=== PATIENT | male | born 1950 | race Caucasian/White ===

== ENCOUNTER → 2017-08-16 10:42 | Outpatient (CLI) | payer MEDICARE, SELFPAY ==
[2017-08-16 12:44] LABS: AST(SGOT) 21 U/L (15-37); Alanine Aminotransfer ALT/SGPT 34 U/L (16-61); Anion Gap 6 (5-15); BUN 17 mg/dL (7-18); BUN/Creat Ratio 20.7 RATIO (10-20); Calcium,Total 9.1 mg/dL (8.5-10.1); Chloride 103 mmol/L (98-107); Cholesterol 143 mg/dL (200); Creatinine, Serum 0.82 mg/dL (0.70-1.30); EST Glomerular Filtration Rate 99 mL/min (>60); Est Glom Filt Rate - Afr Amer 120 mL/min (>60); Glucose 111 mg/dL (74-106); High Density Lipoprotein 53 mg/dL; Potassium 4.4 mmol/L (3.5-5.1); Sodium Level 138 mmol/L (136-145); Triglycerides 153 mg/dL; Very Low Density Lipoprotein 31 mg/dL (5-40)
== END ==
PROVIDERS: Family Provider Family Medicine; PCP Family Medicine; Visit Provider Family Medicine
DX: Z00.00 Encounter for general adult medical examination without abnormal findings (principal); I10 Essential (primary) hypertension; E78.5 Hyperlipidemia, unspecified
CPT/HCPCS: 36415; 80048; 80061; 84450; 84460

== ENCOUNTER → 2018-02-14 09:28 | Outpatient (CLI) | payer MEDICARE, SELFPAY ==
[2018-02-14 12:34] LABS: Anion Gap 10 (5-15); BUN 22 mg/dL (7-18); BUN/Creat Ratio 27.5 RATIO (10-20); Calcium,Total 9.2 mg/dL (8.5-10.1); Chloride 103 mmol/L (98-107); EST Glomerular Filtration Rate 102 mL/min (>60); Est Glom Filt Rate - Afr Amer 123 mL/min (>60); Glucose 93 mg/dL (74-106); Sodium Level 142 mmol/L (136-145)
== END ==
PROVIDERS: Family Provider Family Medicine; PCP Family Medicine; Visit Provider Family Medicine
DX: I10 Essential (primary) hypertension (principal)
CPT/HCPCS: 36415; 80048

== ENCOUNTER 2018-05-29 14:19 | Observation (INO) | payer MEDICARE, SELFPAY ==
[2018-05-29] VITALS (8 sets, daily range): BP systolic 124–166; BP diastolic 83–94; PULSE 83–98; RESP 14–18; TEMP 36.1–37.3; O2SAT 93–96; BMI 35.2
--- NOTE | 2018-05-29 14:34 | RAD_ITS ---
STUDY: X-RAY - LEFT HAND REASON FOR EXAM: Male, 67 years old. Injury to the index finger. Soft tissue swelling. TECHNIQUE: 3 view(s) of the hand. COMPARISON: None. FINDINGS: Normal radiocarpal articulation. Normal distal radioulnar joint. Normal visualized carpal bones. Normal carpal articulations Normal carpometacarpal articulation of the thumb. Normal second through fifth carpometacarpal joints. Normal metacarpi. Normal metacarpophalangeal joint of the thumb. Normal interphalangeal joint of the thumb. Normal proximal and distal phalanges of the thumb. Normal metacarpophalangeal joints of the second through fifth fingers. There is diffuse articular joint space narrowing of the proximal and distal interphalangeal joints of the second through fifth fingers, but without erosive changes or periarticular soft tissue swelling. Focal linear calcification is seen along the radial aspect of the proximal interphalangeal joint of the third digit. This most likely is degenerative in nature. Normal phalanges of the second through fifth fingers. Diffuse soft tissue swelling of the index finger. Tiny metallic density is seen in the soft tissues along the palmar aspect underlying the base of the proximal phalanx of the fifth digit. RAD/Hand Min 3 Views IMPRESSION: Soft tissue swelling of the index finger. Degenerative changes of the interphalangeal joints. Questionable tiny radiopaque foreign body along the volar aspect of the base of the proximal phalanx of the fifth digit. Electronically Signed: Abhay Martinez MD at 15:18 EST Tel [phone], Service support ,
--- NOTE | 2018-05-29 14:37 | ED.VISSUMM ---
- ER Visit Summary Date of Service: 05/29/18 Chief Complaint: Left index finger infection History of Present Illness: The patient is a 67 M who presents for evaluation of the left index finger infection. 10 days ago patient had a crush injury to the finger while at work. He was seen at urgent care, And the injured area was sutured. Tetanus was updated at that time. Patient return to urgent care today for suture removal. Per urgent care, the patient did not follow the wound care instructions or use the splint that was placed. The sutures were removed and purulent drainage was noted from the wound. Patient denies any fever or constitutional symptoms. He denies any red streaking up his arm. He is right-handed. He has mild pain and is unable to bend the finger. He denies history of diabetes or smoking. Physical Examination: Vital signs: afebrile, hemodynamically stable, no hypoxia on room air General: well nourished, well developed, in no distress Skin: warm, dry, no rash, no pallor HEENT: normocephalic and atraumatic; PERRL, EOMI, moist mucous membranes Cardiovascular: regular rate and rhythm Respiratory: No increased work of breathing MSK: Moves all extremities, examination of the left upper extremity shows a 2+ radial pulse. No lymphangitis. No tender lymphadenopathy in the axilla. Left finger has significant fusiform swelling and erythema, with erythematous induration radiating to the distal palmar surface over the second metatarsal. Sensation is intact distally. Large ulcerated and purulent wound on the ulnar surface of the proximal finger. Neuro: Awake and alert, oriented ?4. No facial droop, sensation and motor function intact and symmetric Test Results: Abnormal Lab Results 05/29/18 05/29/18 05/29/18 14:50 14:50 14:50 WBC 10.8 RBC 4.72 Hgb 14.7 Hct 44.3 MCV 93.9 MCH 31.1 MCHC 33.2 RDW 13.4 RDW Differential 46.3 H Plt Count 410 MPV 9.3 Immature Gran % (Auto) 0.200 Neut % (Auto) 59.4 Lymph % (Auto) 28.2 [place] % (Auto) 8.5 Eos % (Auto) 3.4 Baso % (Auto) 0.3 Absolute Neuts (auto) 6.4 Absolute Lymphs (auto) 3.03 Total Counted Not Reportable ESR 15 PT 13.4 INR 1.0 APTT 32.1 Sodium 137 Potassium 3.6 Chloride 99 Carbon Dioxide 27.0 Anion Gap 11 BUN 19 H Creatinine 0.82 Estim Creat Clear Calc 93.32 Est GFR (MDRD) Af Amer 119 Est GFR (MDRD) Non-Af 99 BUN/Creatinine Ratio 23.1 H Glucose 91 Lactic Acid Calcium 9.4 Total Bilirubin 0.60 AST 28 ALT 42 Alkaline Phosphatase 62 C-React Prot Ext Range 21.90 H Total Protein 8.8 H Albumin 3.8 Globulin 5.0 H Albumin/Globulin Ratio 0.8 L 05/29/18 14:50 WBC RBC Hgb Hct MCV MCH MCHC RDW RDW Differential Plt Count MPV Immature Gran % (Auto) Neut % (Auto) Lymph % (Auto) [place] % (Auto) Eos % (Auto) Baso % (Auto) Absolute Neuts (auto) Absolute Lymphs (auto) Total Counted ESR PT INR APTT Sodium Potassium Chloride Carbon Dioxide Anion Gap BUN Creatinine Estim Creat Clear Calc Est GFR (MDRD) Af Amer Est GFR (MDRD) Non-Af BUN/Creatinine Ratio Glucose Lactic Acid 1.2 Calcium Total Bilirubin AST ALT Alkaline Phosphatase C-React Prot Ext Range Total Protein Albumin Globulin Albumin/Globulin Ratio Clinical Impression(s) from Imaging Studies Hand X-Ray 05/29/18 14:34 IMPRESSION: Soft tissue swelling of the index finger. Degenerative changes of the interphalangeal joints. Questionable tiny radiopaque foreign body along the volar aspect of the base of the proximal phalanx of the fifth digit. Electronically Signed: Abhay Martinez MD at 15:18 EST Tel [phone], Service support , Medications Given Vancomycin HCl 1,750 mg/ (Sodium Chloride) 535 mls @ 250 mls/hr IV X1 ONE Stop: 05/29/18 17:38 Last Admin: 05/29/18 16:01 Dose: 250 mls/hr Discontinued Medications Ceftriaxone Sodium (Rocephin) 1 gm in 50 mls @ 100 mls/hr IV X1 ONE Stop: 05/29/18 15:41 Last Admin: 05/29/18 15:29 Dose: 100 mls/hr Emergency Department Course and Treatment: Patient presents with obvious significant infection of the left index finger, with concern for flexor tenosynovitis. Patient has fusiform swelling but is currently not experiencing much pain, including with passive extension. Blood cultures and wound culture were obtained. Labs were performed showing elevated CRP but no leukocytosis. Lactate normal. Patient was started on IV Vanco and Rocephin. X-ray of the finger did not show any deep space gas or osteomyelitis. Patient was discussed with Dr. Pereira, who is going to take the patient to the OR for a washout of the finger this afternoon. Patient will receive IV antibiotics, and this plan was discussed with the patient who was in agreement. He did not require pain medication at any point. Treatment Plan: [] Disposition: [] Impression: Left index finger infection, left index finger flexor tenosynovitis This note was generated with [employer] dictation software. It may contain incorrect words, spelling, and punctuation that were not noted in review of the chart prior to signing ED Disposition - Plan for ED Patient: Disposition: Acute Care Hospital [facility] Chief Complaint: Upper Extremity Injury
--- NOTE | 2018-05-29 14:41 | ED.DCSUM_ITS ---
- ER Visit Summary Date of Service: 05/29/18 Chief Complaint: Left index finger infection History of Present Illness: The patient is a 67 M who presents for evaluation of the left index finger infection. 10 days ago patient had a crush injury to the finger while at work. He was seen at urgent care, And the injured area was sutured. Tetanus was updated at that time. Patient return to urgent care today for suture removal. Per urgent care, the patient did not follow the wound care instructions or use the splint that was placed. The sutures were removed and purulent drainage was noted from the wound. Patient denies any fever or constitutional symptoms. He denies any red streaking up his arm. He is right- handed. He has mild pain and is unable to bend the finger. He denies history of diabetes or smoking. Physical Examination: Vital signs: afebrile, hemodynamically stable, no hypoxia on room air General: well nourished, well developed, in no distress Skin: warm, dry, no rash, no pallor HEENT: normocephalic and atraumatic; PERRL, EOMI, moist mucous membranes Cardiovascular: regular rate and rhythm Respiratory: No increased work of breathing MSK: Moves all extremities, examination of the left upper extremity shows a 2+ radial pulse. No lymphangitis. No tender lymphadenopathy in the axilla. Left finger has significant fusiform swelling and erythema, with erythematous induration radiating to the distal palmar surface over the second metatarsal. Sensation is intact distally. Large ulcerated and purulent wound on the ulnar surface of the proximal finger. Neuro: Awake and alert, oriented ?4. No facial droop, sensation and motor function intact and symmetric Test Results: Abnormal Lab Results 05/29/18 05/29/18 05/29/18 14:50 14:50 14:50 WBC 10.8 RBC 4.72 Hgb 14.7 Hct 44.3 MCV 93.9 MCH 31.1 MCHC 33.2 RDW 13.4 RDW Differential 46.3 H Plt Count 410 MPV 9.3 Immature Gran % (Auto) 0.200 Neut % (Auto) 59.4 Lymph % (Auto) 28.2 [place] % (Auto) 8.5 Eos % (Auto) 3.4 Baso % (Auto) 0.3 Absolute Neuts (auto) 6.4 Absolute Lymphs (auto) 3.03 Total Counted Not Reportable ESR 15 PT 13.4 INR 1.0 APTT 32.1 Sodium 137 Potassium 3.6 Chloride 99 Carbon Dioxide 27.0 Anion Gap 11 BUN 19 H Creatinine 0.82 Estim Creat Clear Calc 93.32 Est GFR (MDRD) Af Amer 119 Est GFR (MDRD) Non-Af 99 BUN/Creatinine Ratio 23.1 H Glucose 91 Lactic Acid Calcium 9.4 Total Bilirubin 0.60 AST 28 ALT 42 Alkaline Phosphatase 62 C-React Prot Ext Range 21.90 H Total Protein 8.8 H Albumin 3.8 Globulin 5.0 H Albumin/Globulin Ratio 0.8 L 05/29/18 14:50 WBC RBC Hgb Hct MCV MCH MCHC RDW RDW Differential Plt Count MPV Immature Gran % (Auto) Neut % (Auto) Lymph % (Auto) [place] % (Auto) Eos % (Auto) Baso % (Auto) Absolute Neuts (auto) Absolute Lymphs (auto) Total Counted ESR PT INR APTT Sodium Potassium Chloride Carbon Dioxide Anion Gap BUN Creatinine Estim Creat Clear Calc Est GFR (MDRD) Af Amer Est GFR (MDRD) Non-Af BUN/Creatinine Ratio Glucose Lactic Acid 1.2 Calcium Total Bilirubin AST ALT Alkaline Phosphatase C-React Prot Ext Range Total Protein Albumin Globulin Albumin/Globulin Ratio Clinical Impression(s) from Imaging Studies Hand X-Ray 05/29/18 14:34 IMPRESSION: Soft tissue swelling of the index finger. Degenerative changes of the interphalangeal joints. Questionable tiny radiopaque foreign body along the volar aspect of the base of the proximal phalanx of the fifth digit. Electronically Signed: Abhay Martinez MD at 15:18 EST Tel [phone], Service support , Medications Given Vancomycin HCl 1,750 mg/ (Sodium Chloride) 535 mls @ 250 mls/hr IV X1 ONE Stop: 05/29/18 17:38 Last Admin: 05/29/18 16:01 Dose: 250 mls/hr Discontinued Medications Ceftriaxone Sodium (Rocephin) 1 gm in 50 mls @ 100 mls/hr IV X1 ONE Stop: 05/29/18 15:41 Last Admin: 05/29/18 15:29 Dose: 100 mls/hr Emergency Department Course and Treatment: Patient presents with obvious significant infection of the left index finger, with concern for flexor tenosynovitis. Patient has fusiform swelling but is currently not experiencing much pain, including with passive extension. Blood cultures and wound culture were obtained. Labs were performed showing elevated CRP but no leukocytosis. Lactate normal. Patient was started on IV Vanco and Rocephin. X-ray of the finger did not show any deep space gas or osteomyelitis. Patient was discussed with Dr. Pereira, who is going to take the patient to the OR for a washout of the finger this afternoon. Patient will receive IV antibiotics, and this plan was discussed with the patient who was in agreement. He did not require pain medication at any point. Treatment Plan: [] Disposition: [] Impression: Left index finger infection, left index finger flexor tenosynovitis This note was generated with [employer] dictation software. It may contain incorrect words, spelling, and punctuation that were not noted in review of the chart prior to signing ED Disposition - Plan for ED Patient: Disposition: Acute Care Hospital [facility] Chief Complaint: Upper Extremity Injury
[2018-05-29 15:12] LABS: Erythrocyte Sedimentation Rate 15 mm/hr (0-20)
[2018-05-29 15:14] LABS: Absolute Lymphocyte Count 3.03 X10^3/ul (0.83-4.51); Absolute Neutrophil Count 6.4 X10^3/uL (2.0-7.7); Basophil# 0.03 X10^3/uL; Basophil% 0.3 % (0-1); Eosinophil# 0.37 X10^3/uL; Eosinophils% 3.4 % (0-5); Hematocrit 44.3 % (40-54); Hemoglobin 14.7 g/dl (13.0-16.5); Lymphocyte # 3.03 X10^3/ul (4.0); Lymphocyte % 28.2 % (19-41); Mean Corp Hgb Conc 33.2 g/gl (32-36); Mean Corpuscular Hgb 31.1 pg (27.0-32.0); Mean Corpuscular Volume 93.9 fL (80-94); Mean Platelet Vol. 9.3 fl (6.2-12.0); Monocyte# 0.91 X10^3/uL; Monocyte% 8.5 % (0-10); Neutrophil # 6.39 X10^3/uL (2.7-7.7); Neutrophil % 59.4 % (47-70); Partial Thromboplast Time 32.1 Seconds (24.1-36.2); Platelet Count 410 K/mm3 (150-450); Prothrombin Time (Protime)PT. 13.4 SECONDS (11.7-14.9); RBC Distribution Width CV 13.4 % (11.6-14.6); RBC Distribution Width SD 46.3 fl (35.1-43.9); Red Blood Count 4.72 M/mm3 (4.6-6.2); White Blood Count 10.8 K/mm3 (4.4-11.0)
[2018-05-29 15:15] LABS: POSITIVE COUNT NO; POSITIVE DIFFERENTIAL NO; POSITIVE MORPHOLOGY NO
[2018-05-29 15:19] LABS: ALB/GLOB Ratio 0.8 RATIO (0.9-2.4); AST(SGOT) 28 U/L (15-37); Alanine Aminotransfer ALT/SGPT 42 U/L (16-61); Albumin, Serum 3.8 g/dL (3.2-5.0); Alkaline Phosphatase 62 U/L (45-117); Anion Gap 11 (5-15); BUN 19 mg/dL (7-18); BUN/Creat Ratio 23.1 RATIO (10-20); Calcium,Total 9.4 mg/dL (8.5-10.1); Chloride 99 mmol/L (98-107); Creatinine, Serum 0.82 mg/dL (0.70-1.30); EST Glomerular Filtration Rate 99 mL/min (>60); Est Glom Filt Rate - Afr Amer 119 mL/min (>60); Estimated Creatinine Clearance 93.32 ml/min; Glucose 91 mg/dL (74-106); Potassium 3.6 mmol/L (3.5-5.1); Protein, Total 8.8 g/dL (6.4-8.2); Sodium Level 137 mmol/L (136-145)
[2018-05-29 15:28] LABS: Lactic Acid 1.2 mmol/L (0.4-2.0)
[2018-05-29] MEDS: Ceftriaxone 1 GM/50 ML BAG IV (15:29)
--- NOTE | 2018-05-29 15:31 | NURSING ---
OR VINCENT LT INDEX FINGER INFECTION
--- NOTE | 2018-05-29 15:38 | ED.RN ---
[facility]ANC SENT WITH SURGERY.
--- NOTE | 2018-05-29 16:58 | HP.PCM_ITS ---
Problem List (1) Flexor tenosynovitis of finger Status: Acute History of Present Illness Date of Admission: 05/29/18 Chief Complaint: left index finger swelling/pain The patient is a 67 year old M who had a crush injury to his left index finger was seen by urgent care given antibiotics put him in a splint and was told to do wound care at home. Patient was per report was noncompliant increased purulence swelling flex fingers seen in the ER x-ray does not show any fracture lucency however patient had increased swelling unable to move finger and pus draining from the large wound on his ulnar aspect of his proximal second finger. Or so was consulted. Patient denies fevers chills or other constitutional symptoms. Pain and swelling localized to the left finger with cellulitis and pain into the palm [] Past Medical History Allergies No Known Allergies Allergy (Verified 05/29/18 14:20) Home Medications: Ambulatory Orders Medication Instructions Recorded Hydrochlorothiazide [Hctz] 1 tab PO DAILY 05/29/18 Quinapril HCl 1 tab PO DAILY 05/29/18 Simvastatin [Zocor] 1 tab PO DAILY 05/29/18 Lives: Spouse/ Significant Other Smoking Status: Unknown if ever smoked Review of Systems Constitutional: Denies: Chills, Fever, Weight Change HEENT: Denies: Head Aches, Sinus Congestion, Sinus Drainage Cardiovascular: Denies: Chest Pain, Palpitations Respiratory: Denies: Cough, Shortness of breath at rest, Sputum production Gastrointestinal: Denies: Abdominal Pain, Nausea, Vomiting Genitourinary: Denies: Dysuria Musculoskeletal: Reports: Hand Pain. Denies: Joint Pain, Joint Tenderness Skin: Denies: Rash, Wounds Neurological: Denies: Numbness, Tingling, Focal weakness Psychiatric: Denies: Anxiety, Depression, Homicidal Ideations, Suicidal Ideations Hematologic/ Lymphatic: Denies: Easy Bruising, Easy Bleeding VTE Information - Inpt Only VTE Present on Admission: No VTE Mechan Device Prophylaxis: SCD's VTE Pharm Prophylaxis ordered?: No Patient Problems: Active and Suspected Problems Flexor tenosynovitis of finger (Acute) - Physical Exam General: Alert, Oriented x3, Cooperative HEENT: Atraumatic, PERRLA, EOMI, Normocephalic Neck: Supple, No JVD, Negative Carotid Bruits Lungs: Clear to auscultation, Normal air movement Cardiovascular: Regular rate, No murmurs Abdomen: Bowel Sounds Present, Soft, Non Tender Extremities: No edema, Capillary Refill Less than 3 Seconds Skin: Ulcer/ Wound, Skin Tear Musculoskeletal: No Tenderness to Palpation of Joints or Extremities, Tenderness - Left index finger redness into palm, pus draining from lac on the ulnar aspect of his proximal second digit, unable to extend, swelling of entire second finger, Neurological: Cranial nerves II-XII grossly intact Psych/Mental Status: Normal Affect, Appropriate Vital Signs Temp Pulse Resp BP Pulse Ox 98.4 F 85 14 134/90 H 93 05/29/18 15:30 05/29/18 15:30 05/29/18 15:30 05/29/18 15:30 05/29/18 15:30 Oxygen Delivery Method Room Air Weight: 260 lb Body Mass Index (BMI) 35.2 Laboratory Tests Past 24 Hrs 05/29/18 05/29/18 05/29/18 14:50 14:50 14:50 WBC 10.8 RBC 4.72 Hgb 14.7 Hct 44.3 MCV 93.9 MCH 31.1 MCHC 33.2 RDW 13.4 RDW Differential 46.3 H Plt Count 410 MPV 9.3 Immature Gran % (Auto) 0.200 Neut % (Auto) 59.4 Lymph % (Auto) 28.2 [place] % (Auto) 8.5 Eos % (Auto) 3.4 Baso % (Auto) 0.3 Absolute Neuts (auto) 6.4 Absolute Lymphs (auto) 3.03 Total Counted Not Reportable ESR 15 PT 13.4 INR 1.0 APTT 32.1 Sodium 137 Potassium 3.6 Chloride 99 Carbon Dioxide 27.0 Anion Gap 11 BUN 19 H Creatinine 0.82 Estim Creat Clear Calc 93.32 Est GFR (MDRD) Af Amer 119 Est GFR (MDRD) Non-Af 99 BUN/Creatinine Ratio 23.1 H Glucose 91 Lactic Acid Calcium 9.4 Total Bilirubin 0.60 AST 28 ALT 42 Alkaline Phosphatase 62 C-React Prot Ext Range 21.90 H Total Protein 8.8 H Albumin 3.8 Globulin 5.0 H Albumin/Globulin Ratio 0.8 L 05/29/18 14:50 WBC RBC Hgb Hct MCV MCH MCHC RDW RDW Differential Plt Count MPV Immature Gran % (Auto) Neut % (Auto) Lymph % (Auto) [place] % (Auto) Eos % (Auto) Baso % (Auto) Absolute Neuts (auto) Absolute Lymphs (auto) Total Counted ESR PT INR APTT Sodium Potassium Chloride Carbon Dioxide Anion Gap BUN Creatinine Estim Creat Clear Calc Est GFR (MDRD) Af Amer Est GFR (MDRD) Non-Af BUN/Creatinine Ratio Glucose Lactic Acid 1.2 Calcium Total Bilirubin AST ALT Alkaline Phosphatase C-React Prot Ext Range Total Protein Albumin Globulin Albumin/Globulin Ratio Assessment/Plan All Active Problems Flexor tenosynovitis of finger (Acute) Questionable flexor tenosynovitis Cellulitis Pus drainage abscess from left proximal finger Consent obtained from patient. Risks benefits not and alternative treatment options discussed. Risks and including but not limited to blood loss, blood clot, infection, neurovascular injury, failure procedure, loss of life and loss of limb. The biggest risk of the surgery is stiffness which we described is most likely can happen patient states that he is right-handed this is less of a concern for him is losing the finger we also discussed losing the finger is another option as well. Patient aware would like proceed with left index finger irrigation debridement most likely extending the incision into the palm he will have a drain overnight admitted for IV antibiotics ID will be consulted as well as social media campaign manager for home health to be done over the weekend Call with increased and patient told to call with increased pain numbness tingling or other issues arise Juan was running Rocephin already given Continue IV antibiotics for 24 hours and awaiting culture but most likely will send him home on pain culture sensitive p.o. antibiotics and will change the antibiotics depending upon the culture results as patient would really like to be home for Thanksgiving This note was generated with [employer] dictation software. It may contain incorrect words, spelling, and punctuation that were not noted in checking the note before signing.
--- NOTE | 2018-05-29 17:19 | OP.PCM_ITS ---
Problem List (1) Flexor tenosynovitis of finger Status: Acute Report of Operation Date of Procedure: 05/29/18 Pre-Operative Diagnosis: left index finger tenosynovitis Post-Operative Diagnosis: same Surgery/Procedure Performed:: left index finger irrigation/debridement ; incision/drainage finger into palm Description of Surgical Findings:: pus superficial Type of Anesthesia:: General Anesthesiologist: Keith Lehman Specimen's removed: cultures from wound Estimated Blood Loss (mL): minimal Fluids Replaced: see anesthesia chart Description of Procedure: Preoperative note Questionable flexor tenosynovitis Cellulitis Pus drainage abscess from left proximal finger Consent obtained from patient. Risks benefits not and alternative treatment options discussed. Risks and including but not limited to blood loss, blood clot, infection, neurovascular injury, failure procedure, loss of life and loss of limb. The biggest risk of the surgery is stiffness which we described is most likely can happen patient states that he is right-handed this is less of a concern for him is losing the finger we also discussed losing the finger is another option as well. Patient aware would like proceed with left index finger irrigation debridement most likely extending the incision into the palm he will have a drain overnight admitted for IV antibiotics ID will be consulted as well as director social for home health to be done over the weekend Call with increased and patient told to call with increased pain numbness tingling or other issues arise Juan was running Rocephin already given Continue IV antibiotics for 24 hours and awaiting culture but most likely will send him home on pain culture sensitive p.o. antibiotics and will change the antibiotics depending upon the culture results as patient would really like to be home for Thanksgiving This note was generated with [employer] dictation software. It may contain incorrect words, spelling, and punctuation that were not noted in checking the note before signing. Operative note Patient seen in preop holding area. Finger was quite erythematous stiff swollen there is an eschar lesion extended both distally into his middle phalanx as well as palmar palmarly. Patient had little to no range of motion without pain. This happened about a week ago. Finger was marked patient brought to the operating placed supine on the operating table. Signing, anesthesia, antibiotic s were held until cultures were taken. The arm was elevated segment in turn was raised her pressure to 50 torr. Timeout was performed. We then made our incision as it actually across the PIP joint distally we does extend to that along the ulnar border of his finger. We then used a 15 blade to debride out some of the skin that was necrotic he has some gross pus that was just soup superficial and did not track deep however we did extend the incision into the palm releases A1 jesus slight murky fluid from that as well. We irrigated this with copious nonsterile saline we let the extension of the finger we irrigated and ensuring that we got the entire flexor irrigating it with copious amounts of sterile saline and flexing and extending to ensure that there was no further pus deep. We then closed the skin over drain 4-0 nylon interrupted stitches sterile dressings and were applied. Patient taught procedure well no comp occasions transferred recovery room tourniquet was deflated please see chart for further details. Postoperative note Discussed in detail the risk for stiffness of the finger IV antibiotics Pull drain tomorrow possible discharge tomorrow was the next day as it is Thanksgiving patient would like to go home he said that was okay but if the cultures grow out back anything weird we have to call and change his antibiotics patient and family are okay with this next Follow-up in 1 week Keep dressing clean and dry [place] disclaimer - Admit VTE Documentation VTE Present on Admission: No VTE Mechan Device Prophylaxis: SCD's VTE Pharm Prophylaxis ordered?: No
[2018-05-29] MEDS: Mupirocin Ointment 22gm Tube 1 APPLIC (17:40)
--- NOTE | 2018-05-29 19:29 | PCM.PN.HOSP ---
Patient Problems: Active and Suspected Problems Flexor tenosynovitis of finger (Acute) Subjective: The patient notes mild to moderate pain currently to the L hand, notably the L index finger s/p OR w/ cellulitis and flexor tenosynovitis per Dr. Pereira. He had recent crush injury to his L index finger and was evaluated per UC, given abx therapy as well as placement in a splint with planned wound care at home with development of increased edema, purulent drainage from the wounds. ED evaluation w/ plain film without acute fracture. Given patient findings patient as noted taken to the ED and admitted per Orthopedic surgery. His is present and notes that he does have a high pain threshold. He denies any fever, chills, nausea, emesis, abdominal pain, chest pain or dyspnea. Past Medical Hx: HTN, HLD. Past Surgical Hx: Denies prior surgery history until recent I+D left proximal finger. Social History: Lives with his , denies tobacco use history, notes occasional EtOH usage and denies any elicit drug usage. Family History: Notes maternal family history of MS otherwise denies maternal and paternal family history of HTN, HD, DM, CA. Allergies: NKDA Home medications: Hydrochlorothiazide [Hctz] 1 tab PO DAILY 05/29/18 Quinapril HCl 1 tab PO DAILY 05/29/18 Simvastatin [Zocor] 1 tab PO DAILY 05/29/18 Objective: Physical Examination: General: awake, alert, oriented x 3 and cooperative, seated upright in bed in no apparent distress. Skin: normal color, turgor, no icterus, cyanosis, L hand and L index finger s/p OR w/ dressing in place, icing currently. HEENT: AT/NC, EOMI, PERRLA, MMM, no carotid bruits or JVD noted. Lungs: CTA bilaterally, moderate effort, mild decrease BL bases, no rales, ronchi or wheezing. Heart: Regular rate and rhythm; no gallop, rub audible. Abdomen: soft, obese, NTTP, ND, normal BS, no HSM. Extremities: no cyanosis, clubbing, s/p OR L hand, dressing in place. Neurological: patient awake, alert, oriented x 3; cognitive function intact; pupils equally reactive to light and accomodation; cranial nerves II-XII grossly normal, moving all 4 extremities except limited LUE as expected given recent OR, strength accordingly moderately globally decreased. Psychiatric: affect appears normal, no acute evidence of depressive or anxiety feelings. Vitals/I&O's: Vital Signs Temp Pulse Resp BP Pulse Ox 98.2 F 87 16 133/89 H 93 05/29/18 18:38 05/29/18 18:38 05/29/18 18:38 05/29/18 18:38 05/29/18 18:38 Oxygen Delivery Method Room Air Weight: 259 lb 14.8 oz Body Mass Index (BMI) 35.2 Intake and Output for Last 24 Hours 05/27/18 05/28/18 05/29/18 23:59 23:59 23:59 Intake Total 800 / 800 Balance 800 / 800 Laboratory Results 05/29/18 14:50: WBC 10.8, RBC 4.72, Hgb 14.7, Hct 44.3, MCV 93.9, MCH 31.1, MCHC 33.2, RDW 13.4, RDW Differential 46.3 H, Plt Count 410, MPV 9.3, Immature Gran % (Auto) 0.200, Neut % (Auto) 59.4, Lymph % (Auto) 28.2, [place] % (Auto) 8.5, Eos % (Auto) 3.4, Baso % (Auto) 0.3, Absolute Neuts (auto) 6.4, Absolute Lymphs (auto) 3.03, Total Counted Not Reportable, ESR 15 05/29/18 14:50: PT 13.4, INR 1.0, APTT 32.1 05/29/18 14:50: Sodium 137, Potassium 3.6, Chloride 99, Carbon Dioxide 27.0, Anion Gap 11, BUN 19 H, Creatinine 0.82, Estim Creat Clear Calc 93.32, Est GFR (MDRD) Af Amer 119, Est GFR (MDRD) Non-Af 99, BUN/Creatinine Ratio 23.1 H, Glucose 91, Calcium 9.4, Total Bilirubin 0.60, AST 28, ALT 42, Alkaline Phosphatase 62, C-React Prot Ext Range 21.90 H, Total Protein 8.8 H, Albumin 3.8, Globulin 5.0 H, Albumin/Globulin Ratio 0.8 L 05/29/18 14:50: Lactic Acid 1.2 Current Medications Hydrocodone Bitart/Acetaminophen ([place] 5mg-325mg) 1 - 2 tablet PO Q6H PRN PRN PRN Reason: Mild-moderate pain (scale 1-5) Cefazolin Sodium () 1 gm in 50 mls @ 100 mls/hr IV Q8 ERIC Stop: 05/30/18 06:29 Influenza Virus Vaccine Quadrival (Fluarix/Fluzone) 0.5 ml IM .ONCE ONE Stop: 05/30/18 10:01 Ondansetron HCl (Zofran) 4 mg IV Q8H PRN PRN PRN Reason: Nausea Medical Necessity - Tobacco Use Smoking Status: Never smoker Assessment/Plan All Active Problems Flexor tenosynovitis of finger (Acute) The patient is a 67 y/o M w/ PMHx: HTN, HLD who presents to the [facility] ED on 05/29/18 with history of crush injury recently to the L index finger w/ worsened edema, pain, redness and onset purulent drainage despite UC evaluation w/ abx therapies. (1) Acute Cellulitis L Index finger w/ flexor tenosynovitis secondary to recent Crush Injury, Failed outpatient Abx Therapy: OR 05/29/[address] Pereira, s/p I+D L index finger, admitted to [facility] per Orthopedic surgery, currently maintained on IV ancef, pending Wound Cx per OR, continue affected extremity elevation above heart when seated and in bed, monitor erythema outline with VS checks, PRN pain regimen per Orthopedic surgery. (2) Hypertension: Continue home HCTZ and ACEI regimen, PRN hydralazine. (3) Hyperlipidemia: Continue home statin regimen. (4) Obesity: Advance lifestyle and diet changes. (5) DVT Prophylaxis: SCDs, given recent OR defer chemoprophylaxis to Orthopedic surgery discretion. Code Visit Inpatient E&M: 97123 Subs Hosp L3
[2018-05-29] MEDS: HYDROcodone Bitartrate/Apap 5/325 Tablet PO (20:53)
[2018-05-29] MEDS: Cefazolin 1 GM/50 ML BAG IV (20:53)
[2018-05-29] MEDS: 0.9% NaCl Peripheral Flush Adult/Peds IV (20:53)
[2018-05-30 03:59] VITALS: BP 133/89; PULSE 83; RESP 16; TEMP 36.9; O2SAT 98
[2018-05-30] MEDS: HYDROcodone Bitartrate/Apap 5/325 Tablet PO (05:12)
[2018-05-30] MEDS: Cefazolin 1 GM/50 ML BAG IV (05:12)
[2018-05-30] MEDS: 0.9% NaCl Peripheral Flush Adult/Peds IV ×2 (05:13→13:37)
--- NOTE | 2018-05-30 08:46 | NURSING ---
wound photo: left index finger
[2018-05-30 10:00] VITALS: BP 127/77; PULSE 83; RESP 14; TEMP 36.4; O2SAT 94
--- NOTE | 2018-05-30 10:18 | PCM.PN.HOSP ---
Patient Problems: Active and Suspected Problems Flexor tenosynovitis of finger (Acute) Subjective: Patient seen and examined. He has no complaints and feels well. He denies any fever chills, cough or chest pain, shortness of breath, abdominal pain, any diarrhea vomiting. Review of systems otherwise negative. Labs and vitals reviewed. Vitals/I&O's: Vital Signs Temp Pulse Resp BP Pulse Ox 98.5 F 83 16 133/89 H 98 05/30/18 03:59 05/30/18 03:59 05/30/18 03:59 05/30/18 03:59 05/30/18 03:59 Oxygen Delivery Method Room Air Weight: 259 lb 14.8 oz Body Mass Index (BMI) 35.2 Intake and Output for Last 24 Hours 05/28/18 05/29/18 05/30/18 23:59 23:59 23:59 Intake Total 1190 / 1190 200 / 200 Balance 1190 / 1190 200 / 200 General: Alert, Oriented x3, Cooperative, No apparent distress HEENT: Atraumatic, PERRLA, EOMI, Normocephalic Oral: Moist Mucosa Neck: Supple, No JVD, Negative Carotid Bruits Lungs: Clear to auscultation, Normal air movement Cardiovascular: Regular rate, Regular Rhythm, Normal S1, Normal S2, No murmurs Abdomen: Bowel Sounds Present, Soft, Non Tender, Non-Distended, No Hepato-splenomegaly Extremities: No clubbing, No cyanosis, No edema, Capillary Refill Less than 3 Seconds, - - Left hand wrapped in JOSE bandage Skin: No rashes, No breakdown Musculoskeletal: No Tenderness to Palpation of Joints or Extremities Lymphatic: No Cervical, Supraclavicular, or Inguinal Adenopathy Neurological: Cranial nerves II-XII grossly intact, Neuro grossly intact, Motor Exam 5/5 strength throughout Psych/Mental Status: Normal Affect, Appropriate, Alert and oriented to time, place, person, mood and affect Laboratory Results 05/29/18 14:50: WBC 10.8, RBC 4.72, Hgb 14.7, Hct 44.3, MCV 93.9, MCH 31.1, MCHC 33.2, RDW 13.4, RDW Differential 46.3 H, Plt Count 410, MPV 9.3, Immature Gran % (Auto) 0.200, Neut % (Auto) 59.4, Lymph % (Auto) 28.2, [place] % (Auto) 8.5, Eos % (Auto) 3.4, Baso % (Auto) 0.3, Absolute Neuts (auto) 6.4, Absolute Lymphs (auto) 3.03, Total Counted Not Reportable, ESR 15 05/29/18 14:50: PT 13.4, INR 1.0, APTT 32.1 05/29/18 14:50: Sodium 137, Potassium 3.6, Chloride 99, Carbon Dioxide 27.0, Anion Gap 11, BUN 19 H, Creatinine 0.82, Estim Creat Clear Calc 93.32, Est GFR (MDRD) Af Amer 119, Est GFR (MDRD) Non-Af 99, BUN/Creatinine Ratio 23.1 H, Glucose 91, Calcium 9.4, Total Bilirubin 0.60, AST 28, ALT 42, Alkaline Phosphatase 62, C-React Prot Ext Range 21.90 H, Total Protein 8.8 H, Albumin 3.8, Globulin 5.0 H, Albumin/Globulin Ratio 0.8 L 05/29/18 14:50: Lactic Acid 1.2 Current Medications Acetaminophen (Tylenol) 650 mg PO Q6H PRN PRN PRN Reason: Non-cardiac pain (mod-severe) Hydrocodone Bitart/Acetaminophen ([place] 5mg-325mg) 1 - 2 tablet PO Q6H PRN PRN PRN Reason: Mild-moderate pain (scale 1-5) Last Admin: 05/30/18 05:12 Dose: 2 tablet Hydralazine HCl (Apresoline Iv) 10 mg IV Q4H PRN PRN PRN Reason: SBP > 160 Ondansetron HCl (Zofran) 4 mg IV Q8H PRN PRN PRN Reason: Nausea Sodium Chloride () 5 - 30 ml IV UD PRN PRN Reason: SALINE FLUSH Last Admin: 05/30/18 05:13 Dose: 10 ml Medical Necessity - Tobacco Use Smoking Status: Never smoker Assessment/Plan All Active Problems Flexor tenosynovitis of finger (Acute) 1. Cellulitis of left index finger with flexor tenosynovitis failed outpatient Antibiotic therapy and had I&D on 05/29/2018. On IV Ancef. Wound culture pending. To keep left upper extremity elevated. Pain medication as per orthopedics-currently on [place] 2. Hypertension: controlled.; On HCTZ and quinapril, and prn hydralazine 3. Hyperlipidemia; on statin 4. Obesity: BMI is 35.1. counselled on diet and lifestyle changes. DVT prophylaxis: SCDs. Code Visit Inpatient E&M: 29685 Subs Hosp L2
--- NOTE | 2018-05-30 10:26 | PN_ITS ---
Patient Problems: Active and Suspected Problems Flexor tenosynovitis of finger (Acute) Subjective: Patient seen and examined. He has no complaints and feels well. He denies any fever chills, cough or chest pain, shortness of breath, abdominal pain, any diarrhea vomiting. Review of systems otherwise negative. Labs and vitals r eviewed. Vitals/I&O's: Vital Signs Temp Pulse Resp BP Pulse Ox 98.5 F 83 16 133/89 H 98 05/30/18 03:59 05/30/18 03:59 05/30/18 03:59 05/30/18 03:59 05/30/18 03:59 Oxygen Delivery Method Room Air Weight: 259 lb 14.8 oz Body Mass Index (BMI) 35.2 Intake and Output for Last 24 Hours 05/28/18 05/29/18 05/30/18 23:59 23:59 23:59 Intake Total 1190 / 1190 200 / 200 Balance 1190 / 1190 200 / 200 General: Alert, Oriented x3, Cooperative, No apparent distress HEENT: Atraumatic, PERRLA, EOMI, Normocephalic Oral: Moist Mucosa Neck: Supple, No JVD, Negative Carotid Bruits Lungs: Clear to auscultation, Normal air movement Cardiovascular: Regular rate, Regular Rhythm, Normal S1, Normal S2, No murmurs Abdomen: Bowel Sounds Present, Soft, Non Tender, Non-Distended, No Hepato-splenomegaly Extremities: No clubbing, No cyanosis, No edema, Capillary Refill Less than 3 Seconds, - - Left hand wrapped in JOSE bandage Skin: No rashes, No breakdown Musculoskeletal: No Tenderness to Palpation of Joints or Extremities Lymphatic: No Cervical, Supraclavicular, or Inguinal Adenopathy Neurological: Cranial nerves II-XII grossly intact, Neuro grossly intact, Motor Exam 5/5 strength throughout Psych/Mental Status: Normal Affect, Appropriate, Alert and oriented to time, place, person, mood and affect Laboratory Results 05/29/18 14:50: WBC 10.8, RBC 4.72, Hgb 14.7, Hct 44.3, MCV 93.9, MCH 31.1, MCHC 33.2, RDW 13.4, RDW Differential 46.3 H, Plt Count 410, MPV 9.3, Immature Gran % (Auto) 0.200, Neut % (Auto) 59.4, Lymph % (Auto) 28.2, [place] % (Auto) 8.5, Eos % (Auto) 3.4, Baso % (Auto) 0.3, Absolute Neuts (auto) 6.4, Absolute Lymphs (auto) 3.03, Total Counted Not Reportable, ESR 15 05/29/18 14:50: PT 13.4, INR 1.0, APTT 32.1 05/29/18 14:50: Sodium 137, Potassium 3.6, Chloride 99, Carbon Dioxide 27.0, Anion Gap 11, BUN 19 H, Creatinine 0.82, Estim Creat Clear Calc 93.32, Est GFR (MDRD) Af Amer 119, Est GFR (MDRD) Non-Af 99, BUN/Creatinine Ratio 23.1 H, Glucose 91, Calcium 9.4, Total Bilirubin 0.60, AST 28, ALT 42, Alkaline Phosphatase 62, C-React Prot Ext Range 21.90 H, Total Protein 8.8 H, Albumin 3.8, Globulin 5.0 H, Albumin/Globulin Ratio 0.8 L 05/29/18 14:50: Lactic Acid 1.2 Current Medications Acetaminophen (Tylenol) 650 mg PO Q6H PRN PRN PRN Reason: Non-cardiac pain (mod-severe) Hydrocodone Bitart/Acetaminophen ([place] 5mg-325mg) 1 - 2 tablet PO Q6H PRN PRN PRN Reason: Mild-moderate pain (scale 1-5) Last Admin: 05/30/18 05:12 Dose: 2 tablet Hydralazine HCl (Apresoline Iv) 10 mg IV Q4H PRN PRN PRN Reason: SBP > 160 Ondansetron HCl (Zofran) 4 mg IV Q8H PRN PRN PRN Reason: Nausea Sodium Chloride () 5 - 30 ml IV UD PRN PRN Reason: SALINE FLUSH Last Admin: 05/30/18 05:13 Dose: 10 ml Medical Necessity - Tobacco Use Smoking Status: Never smoker Assessment/Plan All Active Problems Flexor tenosynovitis of finger (Acute) 1. Cellulitis of left index finger with flexor tenosynovitis * failed outpatient * Antibiotic therapy and had I&D on 05/29/2018. * On IV Ancef. * Wound culture pending. * To keep left upper extremity elevated. * Pain medication as per orthopedics-currently on [place] * 2. Hypertension: controlled.; On HCTZ and quinapril, and prn hydralazine 3. Hyperlipidemia; on statin 4. Obesity: BMI is 35.1. counselled on diet and lifestyle changes. DVT prophylaxis: SCDs. Code Visit Inpatient E&M: 92104 Subs Hosp L2
--- NOTE | 2018-05-30 13:21 | DCINST_ITS ---
- Discharge Diagnoses Current Active Problems: Current Active and Chronic Problems Flexor tenosynovitis of finger (Acute) Reason(s) for Visit for Discharge Instructions: Incision and drainage of left index finger with irrigation secondary to flexor tenosynovitis You will use the following diet at home:: No restrictions, Regular Your food should be the consistency of: Regular Discharge Activity: May Not Drive, May Not Shower May shower in (days): 5 Lifting Restrictions: no lifting with the left hand until follow-up evaluation Keep extremity elevated above heart level: Operative Extremity Call your doctor if your incision/area has: Sudden Increased Bleeding, Increased Pain/ Swelling, Increased Redness, Foul Smelling Discharge, Swelling at the incision site Call your doctor if you observe: Fever of 101 or Higher, Coldness, Increased Pain, Numbness or Tingling, Change in Color, Shortness of breath, Dizziness, Chest pain, Calf discomfort, Uncontrolled pain Suture Line Care: Avoid Pulling/Pushing, Avoid Pinching/Bending Change Dressing in (Days):: 2 - sooner if needed Cleanse incision/area with: Do not get Incision Wet, Keep Dressing Clean & Dry Allergies/Adverse Reactions: Allergies No Known Allergies Allergy (Verified 05/29/18 14:20) Medications to take at Discharge Hydrochlorothiazide [Hctz] 1 tab PO DAILY 05/29/18 Quinapril HCl 20 mg PO DAILY 05/29/18 Simvastatin [Zocor] 1 tab PO DAILY 05/29/18 Linezolid 600 mg PO BID #28 tablet 05/30/18 The following prescriptions were given: Linezolid 600 mg PO BID #28 tablet Primary Care Physician: Xiomy Pickering MD [Primary Care Provider] - Test Results: Test results from this visit will be discussed in further detail at your follow- up appointment, if applicable. Please Follow Up With: Kay Pereira DO - will modify antibiotic regimen pending culture results When: in 4-5 days Proposed Discharge Date: 05/30/18
--- NOTE | 2018-05-30 13:35 | CON.PCM_ITS ---
Problem List (1) Flexor tenosynovitis of finger Status: Acute Reason for Consult: finger infection Consulted by: Dr. Pereira History of Present Illness: The patient is a 67 year old M with no prior h/o MRSA infection who presented with L 2nd finger swelling, pain, and purulent drainage. Pinched his finger 05/16, went to urgent care and got stitched up. After that point noticed progressive worsening. No redness streaking up hand/arm, finger only mildly sore with movement. No fever or chills. Came to ED, taken to OR 05/[address] Pereira for I&D. Got vanc/ceftriaxone, then cefazolin post-op. Interested in going home. Full ROS performed and neg except as noted above. - Medical History Allergies/Adverse Reactions: Allergies No Known Allergies Allergy (Verified 05/29/18 14:20) Home Medications: Ambulatory Orders Medication Instructions Recorded Hydrochlorothiazide [Hctz] 1 tab PO DAILY 05/29/18 Quinapril HCl 20 mg PO DAILY 05/29/18 Simvastatin [Zocor] 1 tab PO DAILY 05/29/18 Linezolid 600 mg PO BID #28 tablet 05/30/18 - Social History SMOKING STATUS:: Never smoker Vital Signs Temp Pulse Resp BP Pulse Ox 97.5 F L 83 14 127/77 H 94 05/30/18 10:00 05/30/18 10:00 05/30/18 10:00 05/30/18 10:00 05/30/18 10:00 Oxygen Delivery Method Room Air Weight: 117.9 kg Body Mass Index (BMI) 35.2 Microbiology Past 72 Hours 05/29/18 17:21 Gram Stain - Final Biopsy - Finger Wound Culture - Preliminary Staphylococcus aureus 05/29/18 17:21 Gram Stain - Final Biopsy - Finger Wound Culture - Preliminary Staphylococcus aureus 05/29/18 14:50 Gram Stain - Final Wound - Finger Wound Culture - Preliminary Staphylococcus aureus Laboratory Tests Past 24 Hrs 05/29/18 05/29/18 05/29/18 14:50 14:50 14:50 WBC 10.8 RBC 4.72 Hgb 14.7 Hct 44.3 MCV 93.9 MCH 31.1 MCHC 33.2 RDW 13.4 RDW Differential 46.3 H Plt Count 410 MPV 9.3 Immature Gran % (Auto) 0.200 Neut % (Auto) 59.4 Lymph % (Auto) 28.2 [place] % (Auto) 8.5 Eos % (Auto) 3.4 Baso % (Auto) 0.3 Absolute Neuts (auto) 6.4 Absolute Lymphs (auto) 3.03 Total Counted Not Reportable ESR 15 PT 13.4 INR 1.0 APTT 32.1 Sodium 137 Potassium 3.6 Chloride 99 Carbon Dioxide 27.0 Anion Gap 11 BUN 19 H Creatinine 0.82 Estim Creat Clear Calc 93.32 Est GFR (MDRD) Af Amer 119 Est GFR (MDRD) Non-Af 99 BUN/Creatinine Ratio 23.1 H Glucose 91 Lactic Acid Calcium 9.4 Total Bilirubin 0.60 AST 28 ALT 42 Alkaline Phosphatase 62 C-React Prot Ext Range 21.90 H Total Protein 8.8 H Albumin 3.8 Globulin 5.0 H Albumin/Globulin Ratio 0.8 L 05/29/18 14:50 WBC RBC Hgb Hct MCV MCH MCHC RDW RDW Differential Plt Count MPV Immature Gran % (Auto) Neut % (Auto) Lymph % (Auto) [place] % (Auto) Eos % (Auto) Baso % (Auto) Absolute Neuts (auto) Absolute Lymphs (auto) Total Counted ESR PT INR APTT Sodium Potassium Chloride Carbon Dioxide Anion Gap BUN Creatinine Estim Creat Clear Calc Est GFR (MDRD) Af Amer Est GFR (MDRD) Non-Af BUN/Creatinine Ratio Glucose Lactic Acid 1.2 Calcium Total Bilirubin AST ALT Alkaline Phosphatase C-React Prot Ext Range Total Protein Albumin Globulin Albumin/Globulin Ratio - Other Studies Radiology: [] reviewed Other Studies: [] Route of nutrition/ use of supplements: [] Nutritional Intake: [] IV Site: [] Sharif Catheter: [] - Physical Exam General: Alert, Oriented x3, Cooperative, No apparent distress HEENT: Atraumatic, PERRLA, EOMI Neck: Supple, No Nodes Lungs: Clear to auscultation, Normal air movement Cardiovascular: Regular rate, Regular Rhythm, No murmurs Abdomen: Soft, Non Tender, Non-Distended Extremities: No edema Skin: Incision - L hand wrapped, able to move fingers IV Site: Peripheral, without redness Musculoskeletal: No Tenderness to Palpation of Joints or Extremities Neurological: Cranial nerves II-XII grossly intact - Assessment/Plan Antibiotics: [] Assessment/Plan: [] Active and Suspected Problems Flexor tenosynovitis of finger (Acute) Staph aureus infection, now s/p OR 05/[address] Pereira. Discussed options with him and he wants to go home. Will follow cx results. Ok for home on po linezolid for 2 week course with ortho follow-up. I gave him my card. Counseled him about watching for fever or worsening pain/redness/drainage. Thank you, will follow, d/w primary team. Rx written.
--- NOTE | 2018-05-30 13:50 | PCM.RX.CS ---
Consult Pharmacy has been consulted to manage selected antiobiotic: Vancomycin Type of Consult: New start Suspected Infection: Skin/Soft tissue Prior Doses of Antibiotics Received/Current Regimen: Received 1750mg IV x1 in ER yesterday 05/29/18 at 16:00 Labs: Sodium 137 mmol/L (136-145) 05/29/18 14:50 Potassium 3.6 mmol/L (3.5-5.1) 05/29/18 14:50 Chloride 99 mmol/L (98-107) 05/29/18 14:50 Carbon Dioxide 27.0 mmol/L (21.0-32.0) 05/29/18 14:50 Anion Gap 11 (5-15) 05/29/18 14:50 BUN 19 mg/dL (7-18) H 05/29/18 14:50 Creatinine 0.82 mg/dL (0.70-1.30) 05/29/18 14:50 Est GFR (MDRD) Af Amer 119 mL/min (>60) 05/29/18 14:50 Est GFR (MDRD) Non-Af 99 mL/min (>60) 05/29/18 14:50 BUN/Creatinine Ratio 23.1 RATIO (10-20) H 05/29/18 14:50 Glucose 91 mg/dL (74-106) 05/29/18 14:50 Microbiology: Microbiology 05/29/18 17:21 Biopsy - Finger Gram Stain - Final 05/29/18 17:21 Biopsy - Finger Wound Culture - Preliminary Staphylococcus aureus 05/29/18 17:21 Biopsy - Finger Gram Stain - Final 05/29/18 17:21 Biopsy - Finger Wound Culture - Preliminary Staphylococcus aureus 05/29/18 14:50 Wound - Finger Gram Stain - Final 05/29/18 14:50 Wound - Finger Wound Culture - Preliminary Staphylococcus aureus Weight used for dosin.9 kg Estimated Creatinine Clearance: 93 ml/min Goal Trough: 15-20 mcg/mL Pharmacy Plan for Drug Dosing: It has been almost 24 hours since the dose was given in ER, so load again but this time with 2000mg IV x1. Then continue with 1250mg IV q8h per the [facility] Pharmacist-Managed IV Vancomycin Dosing Protocol. A trough will be drawn before the 4th dose. Pharmacy Service will continue to monitor and adjust dosing as required. Follow-Up Labs: Trough Vancomycin Labs to be done on [date and time ordered]: 05/31/18 at 12:30
[2018-05-30 16:00] VITALS: BP 137/84; PULSE 83; RESP 16; TEMP 36.7; O2SAT 95
== END 2018-05-30 16:16 | disposition home or self-care (01) ==
LOC: ED 15:30 → SDC 15:40 → AC 15:40 → MS3 05-30 00:05 → SDC 05-30 08:10
PROVIDERS: Admitting Provider Orthopaedic Surgery; Emergency Provider Emergency Medicine; Family Provider Family Medicine; PCP Family Medicine; Visit Provider Student in an Organized Health Care Education/Training Program
PROC: (CPT 26020; principal; 2018-05-29 07:15)
DX: M65.88 Other synovitis and tenosynovitis, other site (principal); L03.012 Cellulitis of left finger; L08.9 Local infection of the skin and subcutaneous tissue, unspecified; Z23 Encounter for immunization; I10 Essential (primary) hypertension; E78.5 Hyperlipidemia, unspecified; E66.9 Obesity, unspecified; Z68.35 Body mass index [BMI] 35.0-35.9, adult; Z79.899 Other long term (current) drug therapy; Z91.19 Patient's noncompliance with other medical treatment and regimen; Z71.3 Dietary counseling and surveillance; B95.61 Methicillin susceptible Staphylococcus aureus infection as the cause of diseases classified elsewhere
CPT/HCPCS: 01810; 26020; 73130; 80053; 83605; 85025; 85610; 85652; 85730; 86140; 87040; 87070; 87075; 87077; 87102; 87186; 87205; 87206; 96365; 96366; 96367; 99218; 99283; G0008; J7040; J7050; 90686; A4216; G0378; J2405

== ENCOUNTER 2018-07-09 08:00 | Outpatient (RCR) | payer MEDICARE, SELFPAY ==
[2018-06-07 14:45] VITALS: BMI 35.2
--- NOTE | 2018-06-08 10:50 | HP.OTEVAL_ITS ---
Patient's Visit Information RENNY BOWIE is a 67 year old M, referred to Occupational Therapy by KATE Deleon, with a diagnosis of L Index finger would p/s debridement. Date of Evaluation: 06/08/18 Occupational Therapist: [place] Bradley, ANA MARÍA/Jaime, CHT - Subjective Subjective: pt. arrives and reports that he got his finger smashed in truck bed about 2 weeks ago. Originally, the wound was small, but pt. reports that he did not provide wound care to the area and about 1 week ago he was admitted to the hospital with an infected finger. pt. was released from the hospital shortly after. pt. reports that he is no longer working d/t his finger. - Objective Objective/Observation: pt. 2nd digit of L hand is very swollen (see edema section for more information) - ROM MP: 0/80 PIP: 0/25 DIP: 0/9 - Strength Forensic Technician: 65# in L and 67# in R Lateral Pinch: 4# in L and 18# in R Tripod Pinch: 8# in L and 14# in R Strength Comments: no pain - Edema PIP: 9 cm (over the joint) DIP: 7.75 cm (distal phalanx prior to DIP joint), 7 cm (over the joint) Proximal Phalanx: 10 cm Other: tender, distal phalnax, 6.5 cm (after the DIP joint) - Sensation Sensation Comments: pt. not able to detect normal sensation in all digits, possibly d/t rougher skin, however, can detect 3.22 sensation in all digits. 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 by completing strengthening exercises and stretches in order to complete BADL?s and IADL?s. Patient will improve lateral and tripod grasps by 10 lbs. by completing strengthening and stretching exercises in order to complete BADL?s and IADL?s. Goal:: Patient will increase ROM in all digits of L 2nd finger in order to make a full composite fist by completing strengthening and stretching exercises in order to complete BADL?s and IADL?s. Goal:: Patient will complete fine motor tasks in order to improve manipulation skills in L hand as demonstrated by completion of 9 hole peg test for increased ability to complete BADL's and IADL's. Goal:: pt. will demo decrease in edema throughout entire L Index finger in order to make a full composite fist for increased I with BADL's and IADL's. Goal:: Patient will report scar/wound care management for decreased scar tissue and increased skin health for increased I with BADL's and IADL's. - Rehabilitation General Assessment: pt. presents with injured 2nd finger of the L hand that became infected about one week ago and now needs p/s debridement to heal up the wound area. D/t the increase in swelling pt. presents today with decreased strength, ROM, decrease manipulation of small objects, and healing/swollen wound. pt. would benefit from OT services 2x/wk for 4 wks. Today, OT educated pt. about wound care and debrided the 2nd index finger to promote healing. OT educated pt. about moving finger and completing some MT to reduce the swelling in the 2nd digit. Rehabilitation Potential: Good - Anticipated Interventions Anticipated Interventions: A/AAROM/PROM, Strengthening, Edema Control, Triggerpoint Release, Wound Care, Modalities, ADL Training, Home Program - Visit Plan Frequency: 2x /Week Duration: 4 Weeks TEXT: Thank you for the opportunity to evaluate your patient. For Medicare and Medicare HMO plans, please review the plan of care and approve it. It will need to be FAXED BACK to us at [phone] for Medicare purposes. Please let me know if there are questions or concerns regarding this plan of care. Physician Signature: Date:
--- NOTE | 2018-06-28 09:46 | OTREVAL_ITS ---
KATE Deleon, It has been my pleasure to treat RENNY BOWIE over the last 6 visits for L Index finger would p/s debridement. Please see the progress note below for an update on the occupational therapy plan of care! Subjective: pt. arrives wearing coband wrapping and demo a decrease in swelling. pt. reports that his ROM is still limited. Objective/Function: before. MP 0/76. PIP 0/47. DIP 0/10. passively. PIP 70. DIP 30. Following. MP 0/76. PIP 0/45. DIP 0/12. passively 68 in PIP and 40 in DIP Plan Frequency: 2x /Week Duration: 4 Weeks Plan: blocking. scar management. US. 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 by completing strengthening exercises and stretches in order to complete BADL?s and IADL?s. Patient will improve lateral and tripod grasps by 10 lbs. by completing strengthening and stretching exercises in order to complete BADL?s and IADL?s. Goal:: Patient will increase ROM in all digits of L 2nd finger in order to make a full composite fist by completing strengthening and stretching exercises in order to complete BADL?s and IADL?s. Goal:: Patient will complete fine motor tasks in order to improve manipulation skills in L hand as demonstrated by completion of 9 hole peg test for increased ability to complete BADL's and IADL's. Goal:: pt. will demo decrease in edema throughout entire L Index finger in order to make a full composite fist for increased I with BADL's and IADL's. Goal:: Patient will report scar/wound care management for decreased scar tissue and increased skin health for increased I with BADL's and IADL's. Anticipated Interventions Anticipated Interventions: A/AAROM/PROM, Strengthening, Edema Control, Triggerpoint Release, Wound Care, Modalities, ADL Training, Home Program Please do not hesitate to contact me at [phone] by phone or if you have questions or concerns regarding this new plan of care! Sincerely, [place] Bradley, OTR/L, CHT
--- NOTE | 2018-10-09 08:22 | HP.OT.NRP ---
HP - Discharge Summary - Patient Information RENNY BOWIE was seen in my office for initial evaluation on 06/08/18. The following Plan of Care was established for this patient: Initial Frequency: 2x /Week Initial Duration: 4 Weeks Plan: Blocking. scar. edema with coband. sandee tape - Anticipated Interventions Anticipated Interventions: A/AAROM/PROM, Strengthening, Edema Control, Triggerpoint Release, Wound Care, Modalities, ADL Training, Home Program This patient was last seen in our office 07/09/19. Pertinent comments regarding their Occupational therapy will appear below: pt was seen for 9 visits following a infection with open irr/meche. pt demo difficulty with scar adhesions and made limited gains with functional ROM- pt has not returned at this time for further tx and is D/C due to timelapse in care. At this point I will be discontinuing this patient from occupational therapy. I would be happy to see this patient again in the future if found appropriate by the physician. Thank you! [place] Bradley, OTR/L, CHT
== END 2018-07-09 19:00 | disposition home or self-care (01) ==
LOC: OT 08:00
PROVIDERS: Family Provider Family Medicine; PCP Family Medicine; Referring Provider Physician Assistant; Visit Provider Physician Assistant
DX: S61.201D Unspecified open wound of left index finger without damage to nail, subsequent encounter (principal)
CPT/HCPCS: 97035; 97140; 97166; 97530

== ENCOUNTER → 2019-10-09 10:37 | Outpatient (CLI) | payer MEDICARE, SELFPAY ==
[2018-06-28 14:57] VITALS: BMI 35.2
[2019-10-09 12:40] LABS: AST(SGOT) 23 U/L (15-37); Alanine Aminotransfer ALT/SGPT 29 U/L (16-61); Anion Gap 6 (5-15); BUN 16 mg/dL (7-18); BUN/Creat Ratio 19.6 RATIO (10-20); Calcium,Total 9.1 mg/dL (8.5-10.1); Chloride 104 mmol/L (98-107); Cholesterol 146 mg/dL (200); Creatinine, Serum 0.82 mg/dL (0.70-1.30); EST Glomerular Filtration Rate 99 mL/min (>60); Est Glom Filt Rate - Afr Amer 120 mL/min (>60); Glucose 118 mg/dL (74-106); High Density Lipoprotein 50 mg/dL; Sodium Level 138 mmol/L (136-145); Triglycerides 114 mg/dL; Very Low Density Lipoprotein 23 mg/dL (5-40)
== END ==
PROVIDERS: PCP Family Medicine; Referring Provider Family Medicine; Visit Provider Family Medicine
DX: E78.5 Hyperlipidemia, unspecified (principal); I10 Essential (primary) hypertension
CPT/HCPCS: 36415; 80048; 80061; 84450; 84460

== ENCOUNTER → 2019-10-23 15:43 | Outpatient (CLI) | payer MEDICARE, SELFPAY ==
[2018-06-28 14:57] VITALS: BMI 35.2
--- NOTE | 2019-10-23 15:45 | RAD_ITS ---
STUDY: X-RAY - RIGHT WRIST REASON FOR EXAM: Male, 69 years old. Pt fell 2 days ago, then again yesterday TECHNIQUE: 4 view(s) of the wrist were obtained. COMPARISON: None. FINDINGS: Comminuted transverse fracture of the distal radius with extension to the articular surface. Minimal degree of dorsal facing. Normal radiocarpal articulation. Normal distal radioulnar articulation. Normal carpal bones. Normal carpal articulations. Normal carpometacarpal articulation of the thumb. Normal second through fifth carpometacarpal articulations. Normal visualized metacarpal bones. Soft tissue swelling. RAD/Wrist min 3 Views IMPRESSION: Nondisplaced comminuted fracture of the distal radius with extension to the articular surface. Mild degree of dorsal facing. Soft tissue swelling. Electronically Signed: Abhay Martinez, at 16:00 EDT , Service support ,
== END ==
PROVIDERS: PCP Family Medicine; Referring Provider Family Medicine; Visit Provider Family Medicine
DX: M25.531 Pain in right wrist (principal)
CPT/HCPCS: 73110

== ENCOUNTER 2019-10-29 05:55 | Day surgery (SDC) | payer MEDICARE, SELFPAY ==
[2019-10-25 08:49] VITALS: BMI 35.2
[2019-10-29 06:19] VITALS: BP 113/63; PULSE 75; RESP 15; TEMP 36.6; O2SAT 97; BMI 33.6
--- NOTE | 2019-10-29 06:24 | EKG12_ITS ---
Test Reason : PRE-OP Blood Pressure : / mmHG Vent. Rate : 073 BPM Atrial Rate : 073 BPM P-R Int : 164 ms QRS Dur : 112 ms QT Int : 402 ms P-R-T Axes : 026 -12 031 degrees QTc Int : 442 ms Normal sinus rhythm Normal ECG Confirmed by JOHN ARIAS, JOHANNA ([id number]), rewrite editor FRANCINE CAMACHO ([id number]) on 10/30/2019 10:02:14 AM Referred By: Olvin Steiner Confirmed By:JOHANNA LOPEZ MD
[2019-10-29] MEDS: Lactated Ringers 1,000 ML 100 ML IV ×2 (06:31→09:00)
--- NOTE | 2019-10-29 07:30 | RAD_ITS ---
STUDY: X-RAY - RIGHT WRIST REASON FOR EXAM: Male, 69 years old. Fx repair 68 seconds, 1.40 mgy TECHNIQUE: Tube coned-down intraoperative view(s) of the wrist were obtained. COMPARISON: Comparison is made with prior study dated October 23, 2019. FINDINGS: The patient is status post open reduction and internal fixation of the distal radial fracture utilizing screw and sideplate fixation device. There is good alignment. Postoperative soft tissue changes. RAD/Wrist min 3 Views IMPRESSION: Status post ORIF of the distal radial fracture. There is good alignment. Postoperative soft tissue changes. Electronically Signed: Abhay Martinez, at 9:38 EDT , Service support ,
[2019-10-29] MEDS: Cefazolin 2 GM in 0.9% Normal Saline 100 ML IV (07:35)
--- NOTE | 2019-10-29 09:27 | PCM.HP.BLA ---
History and Physical Date of Admission: 10/29/19 Intake Intake Visit Reasons: right wrist Chief Complaint: right wrist Accompanied by: Is patient in pain?: Yes Pain scale (1-10): 3 Allergies No Known Allergies Allergy (Verified 06/07/18 14:45) Medications Hydrochlorothiazide [Hctz] 1 tab PO DAILY 05/29/18 [History Confirmed 10/25/19] Quinapril HCl 20 mg PO DAILY 05/29/18 [History Confirmed 10/25/19] Simvastatin [Zocor] 1 tab PO DAILY 05/29/18 [History Confirmed 10/25/19] Linezolid 600 mg PO BID #28 tab 05/30/18 [Rx Confirmed 10/25/19] aspirin 81 mg chewable tablet 81 mg PO DAILY 10/25/19 [History Confirmed 10/25/19] PFSH Social History (Updated 10/25/19 @ 09:[address] Olvin Steiner DO) Smoking Status: Never smoker HPI right wrist: Details: Parts of this documentation were recorded by a scribe, this documentation accurately reflects the service provided and the decisions made by me, Olvin Steiner DO 10/25/19 0752. 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 DOI: 10/21/2019 and 10/22/2019. Patient states that he fell down stairs on monday and landed on his wrist then on monday he was filling water jugs in there home and he got his feet twisted and he fell onto his face and wrist, this was the more severe injury where he likely fractured his wrist, He then saw his PCP 10/23/2019 and had x-rays and was placed in a splint. States that he has removed this splint 1-2 times daily. He does have some intermittant numbness into his fingers but still have some sensation. He does have swelling noted. ROS Musc Reports joint pain, Reports joint swelling, Reports numbness, Denies radiating pain into limb, Denies tingling Skin/Breast Denies redness, Denies lesions, Denies itching, Denies rash, Denies skin swelling Neuro Yes numbness, No tingling Ortho Exam Right Wrist/Hand Date of injury: 10/21/19 Skin/Wound: Yes Swelling, Yes Ecchymosis, Yes nail intact, Yes capillary refill normal Right Wrist: Yes TTP Fracture site; no ROM-Extension 0-60, ROM-Flexion 0-80, ROM-Pronation 0-80 or ROM-Supination 0-90 Sensation: Radial: I, Ulnar: I, Median: I WRIST: unable to make wrinkle sign volarly radial and dorsal deformity volar and dorsal swelling radial deformity to PIP of middle finger which he states is chronic compartments compressib.e Left Wrist/Hand Skin/Wound: Yes Swelling, Yes Ecchymosis Supplemental Info 10/23/2019 x-ray right wrist: Comminuted intra-articular distal radius fracture with dorsal displacement dorsal angulation and impaction entering radiocarpal and radial ulnar joint Assessment & Plan Problems 1. Other closed intra-articular fracture of distal end of right radius, initial encounter S52.571A Plan Personally reviewed patients x-rays of his right wrist today. Educated that his fx site is slightly compressed and is displaced. The recommended treatment for this fx is a plate and screws. Patient educated that he does need to work on getting the swelling down prior to surgery. Educated that we will keep him in his splint and solo wrap and he should try to keep his arm elevated as much as possible and to continuously move his fingers. Reviewed the pre-operative plans with the patient. Risks and benefits of the procedure were fully explained, including but not limited to infection, neurovascular injury, continued pain, arthritis, stiffness, need for further surgery, re-injury, DVT, PE, general risks of anesthesia, and loss of limb or life. The patient understands all the risks and does wish to proceed with written consent. Educated on the risk of infection and risk of increased stiffness of the wrist after surgery. We will schedule the patient for surgery on 10/29/2019. Educated that he will be in a splint for 1 week after surgery. Also counseled patient on increased risk of contact with COVID-19 virus and risks of contacting during hospital stay. This is an outpatient procedure. Emphasized importance of ice and elevation to allow sufficient decrease in swelling to perform surgery if too swollen may have to postpone Follow up 1 week post op or sooner if pain, swelling, numbness or associated symptoms, or concerns develop. All questions answered. Patient in agreement of plan. Coding Level of Care Code Off vis,new,level 3 Diagnoses Other closed intra-articular fracture of distal end of right radius, initial encounter S52.571A ??Encounter type: initial encounter ??Fracture morphology: other intra-articular ??Fracture type: closed I have re-examined the patient. There are no clinical changes since date of exam Essential Procedure Criteria Procedure Essential: Yes Criteria Note: risk of permanent deformity and pain Risk to Patient if Procedure Delayed: Threat of permanent dysfunction of an extremity or organ system
--- NOTE | 2019-10-29 09:29 | DCINST_ITS ---
Discharge Diet: No Restrictions Call your doctor if you observe: Fever of 101 or Higher, Shortness of breath, Chest pain Additional Instructions: Do not remove splint. Keep splint on clean and dry do not get wet. Courage finger range of motion. Absolutely no lifting pushing or pulling any weight with operative extremity. Keep elevated above heart over the next week. Keep cool. Do not stick anything inside of splint. Avoiding sweating will help with itch. If itchy may use [id number] Benadryl. Follow-up as directed call with any concerns. Allergies/Adverse Reactions: Allergies No Known Allergies Allergy (Verified 10/29/19 06:16) Medications to take at Discharge Hydrochlorothiazide [Hctz] 1 tab PO DAILY 05/29/18 Quinapril HCl 20 mg PO DAILY 05/29/18 Simvastatin [Zocor] 1 tab PO DAILY 05/29/18 aspirin 81 mg chewable tablet 81 mg PO DAILY 10/25/19 Acetaminophen [Tylenol Extra Strength] 1,000 mg PO Q6H PRN PRN #50 tab 10/29/19 Oxycodone [Oxyir] 5 mg PO Q4H PRN PRN #25 tab 10/29/19 The following prescriptions were given: Oxycodone [Oxyir] 5 mg PO Q4H PRN PRN #25 tab PRN Reason: Pain Score 6-10/10 Transmission Status: Received by [facility] Acetaminophen [Tylenol Extra Strength] 1,000 mg PO Q6H PRN PRN #50 tab PRN Reason: Pain Score 6-10/10 Transmission Status: Received by [facility] Primary Care Physician: Xiomy Pickering MD [Primary Care Provider] - Test Results: Test results from this visit will be discussed in further detail at your follow- up appointment, if applicable. Please Follow Up With: Olvin Steiner DO - 2 weeks
--- NOTE | 2019-10-29 09:31 | OP.PCM_ITS ---
Report of Operation Date of Procedure: 10/29/19 Description of Surgical Findings:: Preoperative diagnosis: Right distal radius fracture intra-articular greater than 3 fragments with displacement Postoperative diagnosis: [Same] Procedure: ORIF of the distal radius Implants: Synthes distal radius variable angle locking plate Tourniquet time: 59 minutes Complications: [None] Indication for procedure: Pleasant 69-year-old [id number] male fell on an outstretched hand did proceed to medical services and was splinted followed up with me to discuss definitive care. We discussed that his fracture was going into the joint and displaced and risk benefits alternatives of surgical versus nonsurgical intervention with risk of chronic deformity and pain if left untreated also increased risk of COVID 19 contamination coming into the hospital he understood all risks we discussed risks benefits and alternatives of conservative versus surgical intervention. Including the risk of bleeding infection nerve artery tissue damage need for further surgery continued pain postoperative stiffness need for postoperative physical therapy and the expected postoperative course. Procedure: The patient was met in the preoperative holding area the operative extremity was identified by both patient and physician and marked. Patient was met by anesthesia she was brought back to the operating room on a wheeled cart and transferred to the operating table in the supine position anesthesia was started. A well-padded tourniquet was placed on the upper arm of the operative extremity. She was prepped and draped in the usual sterile fashion. A Time out was called to ensure the proper patient procedure and extremity were being contemplated. A 15 blade scalpel was used to make a linear incision over the FCR tendon this was carried down through the skin and subcutaneous tissue. Electrocautery was used to maintain hemostasis. Zain retractors were used. The FCR tendon sheath was incised and the FCR tendon was mobilized radially. A deep blade scalpel was used to perforate the fascia of the deep FCR tendon s lavinia and Littler scissors were used to dissect proximally and distally. Blunt dissection was performed a priya was placed on the radial and ulnar side of the radius. The pronator quadratus was partially torn from the injury and was released off the radial border of the radius with electrocautery and was elevated with a morales elevator. The Hohmann retractors were then placed deep to this muscle. The fracture site was visualized and was freed of hematoma and clot debris with the use of small rongeur and [place]. The fracture was then reduced with the use of a [place] and ulnar deviation and wrist flexion. Adequate reduction could be held with the wrist pronated flexed and ulnarly deviated therefore it was secured temporarily with a percutaneous K wire through the styloid process this was checked under fluoroscopy to ensure that an adequate reduction was maintained. A plate was then positioned over the fracture site and temporarily fixed to the bone with K wires. A cortical screw was then placed in the shaft and sequential locking screws were placed distally this was checked on both AP and lateral projections to ensure screw placement was not penetrating the joint and was in the proper location. Bone drill sleeve was used for the radial styloid screw and a variable angle fashion. The remainder of the cortical screws were placed in the shaft. A cortical screw was used distally as a reduction tool to pull the distal fragment closer to the plate and was then fixed with locking screws the cortical screw was then replaced with a locking screw and the fracture and hardware were visualized in both AP and lateral projections in good alignment and fracture positioning. The wound was thoroughly irrigated. Pronator quadratus was not repairable. A subcutaneous stitch with 3-0 Vicryl was performed followed by 4-0 nylon vertical mattress stitches. Followed by Xeroform 4 x 4 ABD web roll stockinette more web roll and an Karson wrap. The tourniquet was let down. There was no complications intraoperatively and the patient was brought back to the PACU in stable condition where she received an axillary block. All counts were correct.
[2019-10-29 09:33] VITALS: BP 113/63; BP 133/88; PULSE 76; RESP 17; TEMP 36; O2SAT 94
[2019-10-29 09:45] VITALS: BP 113/63; BP 132/82; PULSE 70; RESP 16; TEMP 36.3; O2SAT 92
[2019-10-29 09:58] VITALS: BP 113/63; BP 140/87; PULSE 71; RESP 17; TEMP 36.1; O2SAT 94
[2019-10-29 10:49] VITALS: BP 113/63; BP 116/68; PULSE 74; RESP 15; TEMP 36.4; O2SAT 96
[2019-10-29 11:10] VITALS: BP 113/63
== END 2019-10-29 11:09 | disposition home or self-care (01) ==
LOC: SDC 05:56 → AC 05:58
PROVIDERS: PCP Family Medicine; Referring Provider Orthopaedic Surgery; Visit Provider Orthopaedic Surgery
DX: S52.571A Other intraarticular fracture of lower end of right radius, initial encounter for closed fracture (principal); W10.9XXA Fall (on) (from) unspecified stairs and steps, initial encounter; Y93.89 Activity, other specified; Y92.009 Unspecified place in unspecified non-institutional (private) residence as the place of occurrence of the external cause; Y99.9 Unspecified external cause status; I10 Essential (primary) hypertension; E78.00 Pure hypercholesterolemia, unspecified; Z79.82 Long term (current) use of aspirin; Z79.899 Other long term (current) drug therapy
CPT/HCPCS: 25609; 73110; 76000; 93005; C1713; J7120

== ENCOUNTER → 2019-11-04 13:16 | Outpatient (CLI) | payer MEDICARE, SELFPAY ==
[2019-10-29 06:19] VITALS: BMI 33.6
--- NOTE | 2019-11-04 13:19 | CT_ITS ---
STUDY: CT BRAIN WITHOUT CONTRAST REASON FOR EXAM: Male, 69 years old. PT STATED FALL X 2 WEEKS AGO, PERSISTENT HEADACHES RADIATION DOSAGE (If Supplied By Facility): CTDIvol = ( 44.99 ) mGy, DLP = ( 829.85 ) mGycm TECHNIQUE: Transaxial CT imaging of the brain was performed without administration of intravenous contrast material. Individualized dose optimization techniques were used for this CT. COMPARISON: No relevant priors. FINDINGS: Normal soft tissue structures. Normal calvarium. There is mild cerebral atrophy with widening of the extra-axial spaces and ventricular dilatation. Normal white matter tracts of the cerebral hemispheres. Normal basal ganglia and thalami. Normal brainstem. There is mild cerebellar atrophy. There is no intracranial hemorrhage. There are no findings of an acute ischemic infarction. Partial opacification of the left sphenoid sinus. Mucosal thickening of the ethmoid sinuses. CT/Brain/Head without Contrast IMPRESSION: Chronic involutional changes of the brain. Electronically Signed: Abhay Martinez, at 14:18 EDT , Service support ,
== END ==
PROVIDERS: PCP Family Medicine; Referring Provider Family Medicine; Visit Provider Family Medicine
DX: S06.5X9A Traumatic subdural hemorrhage with loss of consciousness of unspecified duration, initial encounter (principal); X58.XXXA Exposure to other specified factors, initial encounter; Y93.9 Activity, unspecified; Y92.9 Unspecified place or not applicable; Y99.9 Unspecified external cause status
CPT/HCPCS: 70450

== ENCOUNTER → 2019-12-09 08:11 | Outpatient (CLI) | payer MEDICARE, SELFPAY ==
[2019-12-09 08:06] VITALS: BMI 33.6
--- NOTE | 2019-12-09 08:12 | RAD_ITS ---
STUDY: X-RAY - RIGHT WRIST REASON FOR EXAM: Male, 69 years old. POST OP FOLLOW UP TECHNIQUE: 3 view(s) of the wrist were obtained. COMPARISON: Comparison is made with prior examination dated October 23, 2019. FINDINGS: The patient is status post open reduction and internal fixation of the distal radial fracture utilizing plate and screw fixation device. There is evidence of healing of the fracture. There is normal anatomical alignment. Normal radiocarpal articulation. Normal distal radioulnar articulation. Normal carpal bones. Normal carpal articulations. Normal carpometacarpal articulation of the thumb. Normal second through fifth carpometacarpal articulations. Normal visualized metacarpal bones. Soft tissue swelling. RAD/Wrist 2 Views IMPRESSION: Status post open reduction and internal fixation of the distal radial fracture with evidence of healing. Anatomical alignment. Electronically Signed: Abhay Martinez, at 13:09 EDT , Service support ,
== END ==
PROVIDERS: PCP Family Medicine; Referring Provider Orthopaedic Surgery; Visit Provider Orthopaedic Surgery
DX: Z47.89 Encounter for other orthopedic aftercare (principal); S52.501D Unspecified fracture of the lower end of right radius, subsequent encounter for closed fracture with routine healing; X58.XXXD Exposure to other specified factors, subsequent encounter
CPT/HCPCS: 73100

== ENCOUNTER → 2019-12-20 09:42 | Outpatient (CLI) | payer MEDICARE, SELFPAY ==
[2019-12-09 08:06] VITALS: BMI 33.6
--- NOTE | 2019-12-20 09:45 | RAD_ITS ---
STUDY: X-RAY - LEFT KNEE REASON FOR EXAM: Male, 69 years old. CHRONIC KNEE PAIN AND WEAKNESS, LEFT WORSE THAN RIGHT TECHNIQUE: 4 view(s) of the knee. COMPARISON: None. FINDINGS: There is demineralization of the visualized distal femur. There is demineralization of the tibia and fibula. Normal proximal tibiofibular articulation. There is no demonstrated fracture. Normal medial femorotibial compartment. There is severe degenerative arthrosis of the lateral femorotibial compartment with severe joint space narrowing. There is moderate degenerative arthrosis of the patellofemoral articulation. There is a soft tissue prominence in the suprapatellar region suggesting a small volume joint effusion. Mild to moderate soft tissue swelling is present. RAD/Knee 4 or More Views IMPRESSION: Severe tricompartmental DJD and small joint effusion and soft tissue swelling Electronically Signed: Tyler Oseguera MD at 18:28 EDT , Service support ,
--- NOTE | 2019-12-20 09:45 | RAD_ITS ---
STUDY: X-RAY - RIGHT KNEE REASON FOR EXAM: Male, 69 years old. CHRONIC KNEE PAIN AND WEAKNESS, LEFT WORSE THAN RIGHT TECHNIQUE: 4 view(s) of the knee. COMPARISON: None. FINDINGS: There is demineralization of the visualized distal femur. There is demineralization of the tibia and fibula. Normal proximal tibiofibular articulation. There is no demonstrated fracture. There is severe degenerative arthrosis of the medial femorotibial compartment with severe joint space narrowing. Normal lateral femorotibial compartment. There is moderate degenerative arthrosis of the patellofemoral articulation. There is a soft tissue prominence in the suprapatellar region suggesting a small volume joint effusion. Mild soft tissue swelling is present in the anterior medial aspect of the knee joint. RAD/Knee 4 or More Views IMPRESSION: Degenerative arthrosis. Mild soft tissue swelling. Electronically Signed: Tyler Oseguera MD at 17:46 EDT , Service support ,
== END ==
PROVIDERS: PCP Family Medicine; Referring Provider Family Medicine; Visit Provider Family Medicine
DX: M17.0 Bilateral primary osteoarthritis of knee (principal)
CPT/HCPCS: 73564

== ENCOUNTER → 2020-04-13 10:07 | Outpatient (CLI) | payer MEDICARE, SELFPAY ==
[2019-12-09 08:06] VITALS: BMI 33.6
[2020-04-13 12:22] LABS: Anion Gap 4 (5-15); BUN 16 mg/dL (7-18); BUN/Creat Ratio 21.4 RATIO (10-20); Chloride 104 mmol/L (98-107); Creatinine, Serum 0.75 mg/dL (0.70-1.30); EST Glomerular Filtration Rate 110 mL/min (>60); Est Glom Filt Rate - Afr Amer 133 mL/min (>60); Glucose 115 mg/dL (74-106); Potassium 4.4 mmol/L (3.5-5.1); Sodium Level 136 mmol/L (136-145)
== END ==
PROVIDERS: PCP Family Medicine; Visit Provider Family Medicine
DX: I10 Essential (primary) hypertension (principal)
CPT/HCPCS: 36415; 80048

== ENCOUNTER 2020-09-15 08:25 | Outpatient (RCR) | payer MEDICARE, SELFPAY ==
[2019-12-09 08:06] VITALS: BMI 33.6
[2020-09-15] MEDS: COVID-19 VACC, MRNA(PFIZER)/PF 30 MCG/0.3 ML SYRINGE IM (07:59)
[2020-10-06] MEDS: COVID-19 VACC, MRNA(PFIZER)/PF 30 MCG/0.3 ML SYRINGE IM (07:58)
== END 2020-12-15 23:59 ==
LOC: IMMUN 08:25
PROVIDERS: PCP Family Medicine; Visit Provider Family Medicine
DX: Z23 Encounter for immunization (principal)
CPT/HCPCS: 0001A; 0002A; 91300

== ENCOUNTER → 2020-10-14 10:39 | Outpatient (CLI) | payer MEDICARE, SELFPAY ==
[2019-12-09 08:06] VITALS: BMI 33.6
[2020-10-14 13:11] LABS: AST(SGOT) 19 U/L (15-37); Alanine Aminotransfer ALT/SGPT 29 U/L (16-61); Anion Gap 2 (5-15); BUN 15 mg/dL (7-18); BUN/Creat Ratio 19.8 RATIO (10-20); Calcium,Total 9.2 mg/dL (8.5-10.1); Chloride 105 mmol/L (98-107); Cholesterol 144 mg/dL (200); Creatinine, Serum 0.76 mg/dL (0.70-1.30); EST Glomerular Filtration Rate 107 mL/min (>60); Est Glom Filt Rate - Afr Amer 130 mL/min (>60); Glucose 114 mg/dL (74-106); High Density Lipoprotein 56 mg/dL; Microalbumin,Random Urine 8.9 mg/L (NO RANGE EST.); Microalbumin:Creatinine Ratio 15.2 mg/g CRE (<30 mg/g CRE); PSA,Total - Annual Screen 0.82 ng/mL (0.00-4.00); Potassium 4.4 mmol/L (3.5-5.1); Sodium Level 137 mmol/L (136-145); Triglycerides 158 mg/dL; Very Low Density Lipoprotein 32 mg/dL (5-40)
== END ==
PROVIDERS: PCP Family Medicine; Referring Provider Family Medicine; Visit Provider Family Medicine
DX: Z00.00 Encounter for general adult medical examination without abnormal findings (principal); I10 Essential (primary) hypertension; E78.5 Hyperlipidemia, unspecified; Z12.5 Encounter for screening for malignant neoplasm of prostate
CPT/HCPCS: 36415; 80048; 80061; 82043; 82570; 84153; 84450; 84460; G0103

== ENCOUNTER → 2021-04-16 10:01 | Outpatient (CLI) | payer MEDICARE, SELFPAY ==
[2021-04-16 12:26] LABS: Anion Gap 8 (5-15); BUN 16 mg/dL (7-18); BUN/Creat Ratio 20.6 RATIO (10-20); Calcium,Total 9.1 mg/dL (8.5-10.1); Chloride 104 mmol/L (98-107); Creatinine, Serum 0.78 mg/dL (0.70-1.30); EST Glomerular Filtration Rate 105 mL/min (>60); Est Glom Filt Rate - Afr Amer 127 mL/min (>60); Glucose 116 mg/dL (74-106); Potassium 3.9 mmol/L (3.5-5.1); Sodium Level 139 mmol/L (136-145)
== END ==
PROVIDERS: PCP Family Medicine; Referring Provider Family Medicine; Visit Provider Family Medicine
DX: I10 Essential (primary) hypertension (principal)
CPT/HCPCS: 36415; 80048

== ENCOUNTER → 2022-05-09 | Outpatient (CLI) | payer MEDICARE, SELFPAY ==
[2022-05-09 12:27] LABS: Microalbumin,Random Urine 19.3 mg/L (NO RANGE EST.); Microalbumin:Creatinine Ratio 23.8 mg/g CRE (<30 mg/g CRE)
[2022-05-09 15:34] LABS: AST(SGOT) 26 U/L (15-37); Alanine Aminotransfer ALT/SGPT 30 U/L (16-61); Anion Gap 7 (5-15); BUN 24 mg/dL (7-18); BUN/Creat Ratio 33.9 RATIO (10-20); Calcium,Total 9.7 mg/dL (8.5-10.1); Chloride 105 mmol/L (98-107); Cholesterol 159 mg/dL (200); Creatinine, Serum 0.71 mg/dL (0.70-1.30); EST Glomerular Filtration Rate 116 mL/min (>60); Est Glom Filt Rate - Afr Amer 140 mL/min (>60); Glucose 106 mg/dL (74-106); High Density Lipoprotein 54 mg/dL; Potassium 4.2 mmol/L (3.5-5.1); Sodium Level 138 mmol/L (136-145); Triglycerides 191 mg/dL; Very Low Density Lipoprotein 38 mg/dL (5-40)
== END | disposition home or self-care (01) ==
LOC: MFPLAB 10:34
PROVIDERS: PCP Family Medicine; Visit Provider Family Medicine
DX: I10 Essential (primary) hypertension (principal); E78.5 Hyperlipidemia, unspecified
CPT/HCPCS: 36415; 80048; 80061; 82043; 82570; 84450; 84460

== ENCOUNTER → 2022-07-15 | Outpatient (CLI) | payer MEDICARE, SELFPAY ==
--- NOTE | 2022-07-15 09:44 | CT_ITS ---
PROCEDURE: CT LEFT KNEE WITHOUT CONTRAST REASON FOR EXAM: Male, 72 years old. Preoperative planning for the Mako[employer] Robotic knee surgery. Knee pain. TECHNIQUE: Transaxial CT of the hip, knee and ankle were obtained. Coronal and sagittal reconstruction images of the knee were provided. Individualized dose optimization techniques were used for this CT. COMPARISON: None. FINDINGS: Standard protocol for the preoperative planning for the Mako[employer] robotic knee surgery was performed. Osteopenia with moderate to severe arthrosis of the left knee and mild arthrosis of the left hip. Mild arthrosis of the talar joint. CT/Extremity Lower without Contra IMPRESSION: Preoperative Mako[employer] Robotic knee surgical CT evaluation with findings as described above. Electronically Signed: Tony Snowden, at 11:53 EST ,
== END | disposition home or self-care (01) ==
LOC: CT 09:30
PROVIDERS: PCP Family Medicine; Referring Provider Orthopaedic Surgery; Visit Provider Orthopaedic Surgery
DX: M21.162 Varus deformity, not elsewhere classified, left knee (principal)
CPT/HCPCS: 73700

== ENCOUNTER 2022-07-25 05:22 | Day surgery (SDC) | payer MEDICARE, SELFPAY ==
--- NOTE | 2022-07-15 09:38 | EKG12_ITS ---
Test Reason : PRE-OP Blood Pressure : / mmHG Vent. Rate : 078 BPM Atrial Rate : 078 BPM P-R Int : 168 ms QRS Dur : 090 ms QT Int : 376 ms P-R-T Axes : 015 -31 034 degrees QTc Int : 428 ms Normal sinus rhythm Left axis deviation Abnormal ECG Confirmed by GINGER ARIAS, NOE ([id number]), metropolitan editor DASHA ULRICH ([id number]) on 07/18/2022 10:53:14 AM Referred By: Jose Sotelo Confirmed By:DARIA MILES MD
[2022-07-15 11:25] LABS: Absolute Lymphocyte Count 2.28 X10^3/uL (0.83-4.51); Absolute Neutrophil Count 3.7 X10^3/uL (2.0-7.7); Basophil# 0.05 X10^3/uL; Basophil% 0.6 % (0-1); Eosinophil# 0.77 X10^3/uL; Eosinophils% 9.9 % (0-5); Hematocrit 47.3 % (40-54); Hemoglobin 15.7 g/dL (13.0-16.5); Lymphocyte # 2.28 X10^3/ul (0.83-4.51); Lymphocyte % 29.3 % (19-41); Mean Corp Hgb Conc 33.2 g/dL (32-36); Mean Corpuscular Hgb 32.3 pg (27.0-32.0); Mean Corpuscular Volume 97.3 fL (80-94); Mean Platelet Vol. 9.7 fl (6.2-12.0); Monocyte# 0.94 X10^3/uL; Monocyte% 12.1 % (0-10); NRBC Flagged by Analyzer 0 % (0-5); Neutrophil # 3.72 X10^3/uL (2.7-7.7); Neutrophil % 47.7 % (47-70); Platelet Count 307 K/mm3 (150-450); RBC Distribution Width CV 13.1 % (11.6-14.6); RBC Distribution Width SD 46.7 fl (35.1-43.9); Red Blood Count 4.86 M/mm3 (4.6-6.2); White Blood Count 7.8 K/mm3 (4.4-11.0)
[2022-07-15 11:41] LABS: Albumin, Serum 3.8 g/dL (3.2-5.0); Anion Gap 6 (5-15); BUN 22 mg/dL (7-18); BUN/Creat Ratio 30.3 RATIO (10-20); Chloride 104 mmol/L (98-107); Creatinine, Serum 0.73 mg/dL (0.70-1.30); EST Glomerular Filtration Rate 112 mL/min (>60); Est Glom Filt Rate - Afr Amer 136 mL/min (>60); Glucose 99 mg/dL (74-106); Potassium 3.7 mmol/L (3.5-5.1); Sodium Level 140 mmol/L (136-145)
[2022-07-15 11:51] LABS: Hemoglobin A1c 5.9 % (3.8-5.6)
[2022-07-15 12:12] LABS: Magnesium 2.2 mg/dL (1.6-2.6)
[2022-07-25] VITALS (10 sets, daily range): BP systolic 81–134; BP diastolic 39–86; PULSE 75–104; RESP 16–18; TEMP 36.2–36.5; O2SAT 95–100; BMI 32.8
[2022-07-25] MEDS: Lactated Ringers 1,000 ML 15 ML IV (06:18)
[2022-07-25] MEDS: Acetaminophen 500 MG Tablet 1000 MG PO ×2 (06:31→14:25)
[2022-07-25] MEDS: Gabapentin 600 MG Tablet PO (06:32)
--- NOTE | 2022-07-25 07:30 | KNEE_PTH ---
PATIENT: RENNY BOWIE LOC: [facility] [place] U#:[id number] AGE/SX: 72/M ROOM: RE07/25/[address]: Dr. Jose Sotelo DO : 1950 BED: DIS: 07/25/2022 SPEC #: [id number] RECD: 07/25/22 12:01 STATUS: ANDREW REQ #: [id number] DALY: 07/25/22 07:[address]: Jose Sotelo DEPT: SURGICAL PATHOLOGY RECD BY: Radha Talbot ENTERED: 07/25/22 13:24 SP TYPE: TOTAL KNEE OTHR DR: Dr. Xiomy Pickering MD Tissues: Knee, NOS Procedures: Decalcification bone/plaque Surgery Specimen Level IV HEADER OPERATION: ERAS, left total knee replacement robotic arm assist PRE-OP DIAGNOSIS: Osteoarthritis, left knee varus deformity TISSUE SUBMITTED: Bone, left knee MICROSCOPIC DIAGNOSIS Bone of left knee, total knee resection: Severe degenerative joint disease. AM:laure 07/28/2022 MICROSCOPIC DESCRIPTION Slides are reviewed. GROSS DESCRIPTION Received is one container designated bone left knee. The specimen consists of multiple fragments of nathan-yellow bone measuring in aggregate 9.5 x 10 x 4 cm. No soft tissue is identified. A number of bony fragments contain articular surfaces consistent with tibial plateau and femoral condyle and displaying prominent osteophyte formation, eburnation, and bone erosion. Outside Medical Sales Representative sections are submitted in one cassette after decalcification. / SJ:laure 07/25/2022 TC:5 CPT: 44211, 28710
[2022-07-25] MEDS: Cefazolin 2 GM in 0.9% Normal Saline 100 ML IV (07:42)
[2022-07-25 07:50] LABS: Bedside Glucose 135 mg/dL (74-106)
[2022-07-25] MEDS: TXA 1000mg in NS100 100ml (IVPB at Closure) 660 MG IV (07:50)
[2022-07-25] MEDS: TXA 1000mg in NS100 100ml (IVPB at Incision) 660 MG IV (09:09)
[2022-07-25] MEDS: Triamcinolone Acetonide 40 MG/ML Vial ×2 (09:50)
[2022-07-25] MEDS: Lidocaine 1% (20 ml mdv) 20 ML Vial (09:50)
--- NOTE | 2022-07-25 09:51 | OP.PCM_ITS ---
Report of Operation Date of Procedure: 07/25/22 Pre-Operative Diagnosis: OA bilateral knees Post-Operative Diagnosis: same Surgery/Procedure Performed:: Left TKR, Intra-articular cortisone injection Right Description of Surgical Findings:: Report of Operation Date of Procedure: 07/25/22 Preoperative Diagnosis: [bilateral ] knee primary osteoarthritis Postoperative Diagnosis: [bilateral ] knee primary osteoarthritis Operation: Robotic Assisted Knee Total Arthroplasty, [left ] knee, Intra- articular cortisone injection right knee Surgeon: Dr Jose Sotelo DO Getter Filler: Tony Woods PA-C Anesthesia: spinal Anesthesiologist: Keith Lehman M.D. Findings: Stable knee with good patella tracking Specimen(s): Bony cuts Complications: No intraoperative complications Estimated Blood Loss: 30 cc IV Fluids: 1000 cc crystalloid Implants Used: 1. [place] Triathlon press-fit CR size 5 femur 2. Rea triathlon size 6 tibia 3. 35 mm patella 4. 11 mm CS polyethylene Brief History Operative Indications: [ (72 y'o male) ] with history of [bilateral ] knee osteoarthrosis with radiographic findings with loss of joint space, osteophyte formation and subchondral sclerosis. Failed conservative measures as mentioned in the H&P. Discussion of total knee arthroplasty as well as risk and benefits were discussed with the patient including but not limited to blood loss, DVTs, PEs, neurovascular damage, general risk of anesthesia including loss of life, and stiffness or instability were also discussed with the patient. Patient demonstrated understanding and was able to sign informed consent. Procedure: On the date of procedure, patient's [left ] lower extremity was marked in the preoperative area. The patient was then taken back to the operating room where that patient was placed on the table in the supine position. All bony prominences were identified and well-padded. Anesthesia assumed control of the C-spine and airway throughout the remainder of the procedure. A tourniquet was placed on the [ left ] upper thigh and the leg was prepped in a sterile fashion. The surgeon then scrubbed at this time. Upon reentering the room, the [ left ] lower extremity was draped in a standard orthopedic fashion. A timeout was then called and everyone agreed upon the side, the site, the procedure to be performed, patient's identity and antibiotics given. Esmarch bandage was used to exsanguinate the extremity and the tourniquet was placed up to 250 mmHg with the knee in flexion. A midline skin incision was made and a sharp dissection was taken down through skin, subcutaneous tissue and fat. The standard medial parapatellar incision was made and the patella was subluxed laterally. An appropriate deep MCL release was done and the fat pad was resected. Our attention was then directed to the patella. The patella was everted and a flat resection was made. The knee was then flexed up and 2 femoral pins were placed inside the incision and 2 tibial pins were placed outside the incision in the medial tibia bicortically. Once this was completed, the 2 checkpoints in the femur and tibia were placed. Knee was then flexed up and the bony landmarks were registered. Once the was completed, the knee taken through range of motion and manually stressed allowing us to plan for an appropriate tibial cut. The robotic arm was brought into the field sterilely and checkpoint and saw were registered. Based on the patient's deformity, the tibial cut was made in [2 degrees varus ]. At this time, the tensioner was then placed in the joint and ligament tension was checked at 90 degrees and full extension. Based on the patient's ligamentous tension, appropriate adjustments were made to the operative plan and ligament releases were done. Once we were happy with our operative plan with balanced flexion and extension gaps, our attention was directed to the femur. The robot was brought into the field sterilely and registered. Posterior condylar cuts, anterior chamfer cuts and anterior cuts were appropriately made for a [ size 5 ] femur. When these were completed, the saws were switched out in the distal femoral and posterior c hamfer cuts were made. Protecting the soft tissue throughout this time. A [ size 6 ] base plate was selected. The knee was flexed to 90 degrees and soft tissues and posterior osteophytes were removed from the joint. 40 cc of the periarticular injection was injected into the posterior medial corner of the joint. The appropriate trials were then placed on the femur and tibia. A trial polyethylene was trialed to ensure proper balancing and stability of the knee. The appropriate tibial internal rotation was then marked with a bovie. Our attention was then directed to the patella. The lug holes were drilled and the patella trial was placed. Patellar tracking was checked and deemed appropriate. Once we were happy, lug holes were drilled for the femur and trial components were removed. The tibia was subluxed and pinned into place and the keel was punched and drilled appropriately. Final components were verified and opened. The wound was copiously irrigated with normal saline. The components were impacted into place with the tibia, femur and finally the patella. The trial poly component was placed and the knee was placed in full extension. The tracking, alignment and balance were verified and a [ 11 mm CS ] polyethylene component was placed. After closure and dressing of the left knee, the anterior aspect of the right knee was prepared sterilely. The right knee was then injected with 80 mg of Kenalog and 4 cc of 1% lidocaine without epinephrine. The needle was withdrawn from the knee and a sterile Band-Aid was placed. Once the final components were placed an Irrisept lavage was performed and the wound was copiously irrigated with normal saline solution and the periarticular injection was given. the wound was closed in a layer-rosa fashion using #1 vicryl interrupted sutures for the arthrotomy, 2-0 interrupted vicryl suture for the subcuticular layer and johnie for final skin closure. A sterile compressive dressing was then placed. The patient was then awakened from anesthesia, transferred to the [facility] and transferred to the PACU for recovery. My physician assistant professor of business was a vital part of this case. He was important in appropriate retraction during the case, and protection of soft tissues during bony cuts. His intimate knowledge of the case and my steps aided in safe and expedient completion of the procedure as well as appropriate position of the leg during the case. He was also vital in assisting with closure under my direct supervision. Due to the complexity of this case, robotic arm was used to assist in the surgery to improve accuracy and clinical outcomes. Post-op Plan: DVT ppx; ASA 81 mg BID, thigh high compression stockings Follow up: in office in 2 weeks for wound check PT: to start POD #0 at hospital, outpatient PT should be arranged. Preoperative antibiotic: Ancef 2 grams IV Jose Sotelo DO Surgeon: Jose Sotelo vice president of software development: Tony Woods Type of Anesthesia: Spinal Anesthesiologist: Keith Lehman Specimen's removed: bone Estimated Blood Loss (mL): 30 cc Fluids Replaced: 1000 cc crystalloid Admit VTE Documentation VTE Present on Admission: No VTE Mechan Device Prophylaxis: SCD's and Thigh High HENNA Hose VTE Pharm Prophylaxis ordered?: Yes
[2022-07-25] MEDS: Lactated Ringers 1,000 ML 999 ML IV (10:20)
--- NOTE | 2022-07-25 10:20 | RAD_ITS ---
STUDY: X-RAY - LEFT KNEE REASON FOR EXAM: Male, 72 years old. Post opTKR -- in PACU TECHNIQUE: 2 view(s) of the knee. COMPARISON: Comparison is made with prior study dated 12/20/2019. FINDINGS: Normal visualized distal femur. Normal visualized proximal tibia and fibula. Normal proximal tibiofibular articulation. The patient is status post total knee replacement. There is good alignment. Postoperative soft tissue changes. RAD/Knee 1 or 2 Views IMPRESSION: Status post total knee replacement. There is good alignment. Postoperative soft tissue changes. Electronically Signed: Abhay Martinez MD at 14:04 EST ,
[2022-07-25] MEDS: oxyCODONE 5 MG Tablet PO (14:26)
== END 2022-07-25 15:16 | disposition home or self-care (01) ==
LOC: SDC 05:24 → AC 05:26
PROVIDERS: Anesthesiology; PCP Family Medicine; Referring Provider Orthopaedic Surgery; Visit Provider Orthopaedic Surgery
PROC: (CPT 20610; principal; 2022-07-25 07:00)
DX: M17.12 Unilateral primary osteoarthritis, left knee (principal); E78.00 Pure hypercholesterolemia, unspecified; I10 Essential (primary) hypertension; H91.90 Unspecified hearing loss, unspecified ear; Z79.899 Other long term (current) drug therapy
CPT/HCPCS: 20610; 27447; 36415; 73560; 80048; 82040; 82962; 83036; 83735; 85025; 87077; 87081; 88305; 88311; 93005; 97162; C1776; J7120; J2405; J3475

== ENCOUNTER → 2023-04-18 | Outpatient (CLI) | payer MEDICARE, SELFPAY ==
[2023-04-18 13:29] LABS: AST(SGOT) 22 U/L (15-37); Alanine Aminotransfer ALT/SGPT 28 U/L (16-61); Anion Gap 5 (5-15); BUN 15 mg/dL (7-18); BUN/Creat Ratio 24.5 RATIO (10-20); Calcium,Total 9.5 mg/dL (8.5-10.1); Chloride 108 mmol/L (98-107); Cholesterol 126 mg/dL (200); Creatinine, Serum 0.61 mg/dL (0.70-1.30); EST Glomerular Filtration Rate 137 mL/min (>60); Est Glom Filt Rate - Afr Amer 166 mL/min (>60); Glucose 99 mg/dL (74-106); High Density Lipoprotein 53 mg/dL; Potassium 4.2 mmol/L (3.5-5.1); Sodium Level 139 mmol/L (136-145); Triglycerides 150 mg/dL; Very Low Density Lipoprotein 30 mg/dL (5-40)
[2023-04-18 13:47] LABS: Microalbumin,Random Urine 62.1 mg/L (NO RANGE EST.); Microalbumin:Creatinine Ratio 117.8 mg/g CRE (<30 mg/g CRE)
== END | disposition home or self-care (01) ==
LOC: MTLAB 11:15
PROVIDERS: PCP Family Medicine; Referring Provider Family Medicine; Visit Provider Family Medicine
DX: E78.5 Hyperlipidemia, unspecified (principal); I10 Essential (primary) hypertension
CPT/HCPCS: 36415; 80048; 80061; 82043; 82570; 84450; 84460

== ENCOUNTER → 2023-05-17 | Outpatient (CLI) | payer MEDICARE, SELFPAY ==
--- NOTE | 2023-05-17 07:49 | CT_ITS ---
STUDY: CT RIGHTLOWER EXTREMITY WITHOUT CONTRAST REASON FOR EXAM: Male, 72 years old. PAIN right knee osteoarthritis, surgical planning RADIATION DOSAGE (If Supplied By Facility): CTDIvol = ( 18.77 ) mGy, DLP = ( 1124.44 ) mGycm TECHNIQUE: Thin section transaxial imaging of the ankle was obtained, with sagittal and coronal reconstructed images. Individualized dose optimization techniques were used for this CT. COMPARISON: None. Hip findings: Normal femoral head, neck, intertrochanteric region and visualized proximal femur. Normal acetabulum. Normal hip joint. Normal visualized superior and inferior pubic rami and ischial tuberosities. No demonstrated hip joint fractures. No visualized intrapelvic structures: Sigmoid diverticulosis Knee findings: Moderate to severe narrowing of medial compartment with bulky peripheral cortical osteophyte formation in addition to sclerosis and cystic changes on both sides of the articulation. Mild narrowing and osteoarthritis in the lateral compartment. Moderate degenerative narrowing in the patellofemoral compartment with mild cortical osteophyte formation. A small knee joint effusion is also present. The quadriceps and patellar tendons are grossly intact. The soft tissues are otherwise unremarkable. Normal proximal tibiofibular articulation. Ankle findings: Normal visualized distal tibia and fibula. Normal tibiotalar articulation and talar dome. Normal talus, calcaneus, navicular and cuboid tarsal bones. Normal subtalar, talonavicular and calcaneocuboid articulations. Normal navicular-cuneiform, cuneiform tarsal bones and intercuneiform articulations. Normal tarsometatarsal articulations and visualized metatarsi. The soft tissue structures are grossly normal. CT/Extremity Lower without Contra IMPRESSION: 1. Tricompartmental degenerative changes of the knee as above. Electronically Signed: Tyler Oseguera MD at 9:43 EST ,
== END | disposition home or self-care (01) ==
LOC: CT 07:44
PROVIDERS: PCP Family Medicine; Referring Provider Orthopaedic Surgery; Visit Provider Orthopaedic Surgery
DX: M17.11 Unilateral primary osteoarthritis, right knee (principal)
CPT/HCPCS: 73700

== ENCOUNTER 2023-06-12 07:57 | Day surgery (SDC) | payer MEDICARE, SELFPAY ==
[2023-05-17 08:00] LABS: Absolute Lymphocyte Count 1.92 X10^3/uL (0.83-4.51); Absolute Neutrophil Count 2.9 X10^3/uL (2.0-7.7); Basophil# 0.06 X10^3/uL; Eosinophil# 0.56 X10^3/uL; Eosinophils% 9.2 % (0-5); Hematocrit 45.7 % (40-54); Hemoglobin 14.5 g/dL (13.0-16.5); Lymphocyte # 1.92 X10^3/ul (0.83-4.51); Lymphocyte % 31.6 % (19-41); Mean Corp Hgb Conc 31.7 g/dL (32-36); Mean Corpuscular Volume 97.9 fL (80-94); Mean Platelet Vol. 9.4 fl (6.2-12.0); Monocyte# 0.64 X10^3/uL; Monocyte% 10.5 % (0-10); NRBC Flagged by Analyzer 0 % (0-5); Neutrophil # 2.87 X10^3/uL (2.7-7.7); Neutrophil % 47.4 % (47-70); Platelet Count 308 K/mm3 (150-450); RBC Distribution Width CV 13.5 % (11.6-14.6); RBC Distribution Width SD 49.1 fl (35.1-43.9); Red Blood Count 4.67 M/mm3 (4.6-6.2); White Blood Count 6.1 K/mm3 (4.4-11.0)
[2023-05-17 08:39] LABS: Hemoglobin A1c 5.5 % (3.8-5.6)
[2023-06-12] VITALS (7 sets, daily range): BP systolic 98–153; BP diastolic 66–97; PULSE 79–89; RESP 16; TEMP 36.1–36.3; O2SAT 96–99; BMI 32.0
--- NOTE | 2023-06-12 | KNEE_PTH ---
PATIENT: RENNY BOWIE LOC: [facility] – [place] U#:[id number] AGE/SX: 72/M ROOM: RE06/12/[address]: Dr. Jose Sotelo DO : 1950 BED: DIS: 06/12/2023 SPEC #: [id number] RECD: 06/12/23 13:55 STATUS: ANDREW [place]hanna #: [id number] DALY: 06/12/23 00:[address]: Jose Sotelo DEPT: SURGICAL PATHOLOGY RECD BY: Radha Talbot ENTERED: 06/12/23 13:56 SP TYPE: TOTAL KNEE OTHR DR: Dr. Xiomy Pickering MD Tissues: Knee, NOS Procedures: Decalcification bone/plaque Surgery Specimen Level IV HEADER OPERATION: ERAS, total knee replacement robotic arm assist PRE-OP DIAGNOSIS: Unilateral primary osteoarthritis right knee; varus deformity right knee; pain in right knee TISSUE SUBMITTED: Right knee bone and tissue MICROSCOPIC DIAGNOSIS Bone and tissue, right knee, total knee replacement/resection: Pieces of bone with degenerative osteoarthritic changes. Fibroadipose tissue, fibroconnective tissue and reactive synovial tissue. SHARLA:laure 06/15/2023 MICROSCOPIC DESCRIPTION Slides are reviewed. GROSS DESCRIPTION Received is one container designated bone and soft tissue right9.0 knee. The specimen consists of multiple fragments of nathan-yellow bone measuring in aggregate 9.0 x 9.0 x 3.5 cm. Also in the specimen container are multiple fragments of yellow-white soft tissue measuring in aggregate 9.0 x 7.5 x 3.0 cm. A number of bony fragments contain articular surfaces consistent with tibial plateau and femoral condyle and displaying prominent osteophyte formation, eburnation and bone erosion. Handhole Machine Operator sections are submitted in two cassettes as follows: 1 - soft tissue, 2 - bone after decalcification. / SHARLA:laure 06/12/2023 TC:5 CPT: 38746, 27868
[2023-06-12] MEDS: Magnesium 1 GM over 15 mins IV (08:38)
[2023-06-12] MEDS: Acetaminophen 500 MG Tablet 1000 MG PO (08:40)
[2023-06-12] MEDS: Gabapentin 600 MG Tablet PO (08:40)
[2023-06-12] MEDS: Lactated Ringers 1,000 ML 15 ML IV (08:44)
[2023-06-12 09:09] LABS: Bedside Glucose 123 mg/dL (74-106)
--- NOTE | 2023-06-12 10:16 | RAD_ITS ---
STUDY: X-RAY - RIGHT KNEE REASON FOR EXAM: Male, 72 years old. post op -- in PACU TECHNIQUE: 2 view(s) of the knee. COMPARISON: 12/20/2019 FINDINGS: Normal visualized distal femur. Normal visualized proximal tibia and fibula. Normal proximal tibiofibular articulation. Interval recent total knee arthroplasty with skin johnie and subcutaneous emphysema.. The soft tissue structures are unremarkable. RAD/Knee 1 or 2 Views IMPRESSION: Interval recent total knee arthroplasty Electronically Signed: iJm Cole MD at 23:00 EST ,
[2023-06-12] MEDS: Cefazolin 2 GM in 0.9% Normal Saline (100mL Bag) 100 ML IV (11:24)
[2023-06-12] MEDS: TXA 1000mg in NS100 100ml (IVPB at Closure) 660 MG IV (11:35)
[2023-06-12] MEDS: TXA 1000mg in NS100 100ml (IVPB at Incision) 660 MG IV (13:05)
[2023-06-12] MEDS: JPS (Morphine 10mg/ml) OPERA.SITE (13:23)
--- NOTE | 2023-06-12 14:14 | OP.PCM_ITS ---
Report of Operation Date of Procedure: 06/12/23 Pre-Operative Diagnosis: OA right knee Post-Operative Diagnosis: same Surgery/Procedure Performed:: Right TKR Description of Surgical Findings:: Report of Operation Date of Procedure: 06/12/2023 Preoperative Diagnosis: [ Right ] knee primary osteoarthritis Postoperative Diagnosis: [Right ] knee primary osteoarthritis Operation: Robotic Assisted Knee Total Arthroplasty, [ Right ] knee Surgeon: Dr Jose Sotelo DO It Sales Representative: Edwige Quintero PA-C Anesthesia: Spinal Anesthesiologist: Handy Zabala M.D. Findings: Stable knee with good patella tracking Specimen(s): Bony cuts Complications: No intraoperative complications Estimated Blood Loss: 25 cc IV Fluids: 1000 cc crystalloid Implants Used: 1. [place] Triathlon press-fit CR size 5 femur 2. [place] Triathlon size 6 tibia 3. 35 mm patella 4. 9 mm CS polyethylene Brief History Operative Indications: [ (72 y/o male) ] with history of [ right ] knee osteoarthrosis with radiographic findings with loss of joint space, osteophyte formation and subchondral sclerosis. Failed conservative measures as mentioned in the H&P. Discussion of total knee arthroplasty as well as risk and benefits were discussed with the patient including but not limited to blood loss, DVTs, PEs, neurovascular damage, general risk of anesthesia including loss of life, and stiffness or instability were also discussed with the patient. Patient demonstrated understanding and was able to sign informed consent. Procedure: On the date of procedure, patient's [ right ] lower extremity was marked in the preoperative area. The patient was then taken back to the operating room where that patient was placed on the table in the supine position. All bony prominences were identified and well-padded. Anesthesia assumed control of the C-spine and airway throughout the remainder of the procedure. A tourniquet was placed on the [right ] upper thigh and the leg was prepped in a sterile fashion. The surgeon then scrubbed at this time. Upon reentering the room, the [right ] lower extremity was draped in a standard orthopedic fashion. A timeout was then called and everyone agreed upon the side, the site, the procedure to be performed, patient's identity and antibiotics given. Esmarch bandage was used to exsanguinate the extremity and the tourniquet was p laced up to 250 mmHg with the knee in flexion. A midline skin incision was made and a sharp dissection was taken down through skin, subcutaneous tissue and fat. The standard medial parapatellar incision was made and the patella was subluxed laterally. An appropriate deep MCL release was done and the fat pad was resected. Our attention was then directed to the patella. The patella was everted and a flat resection was made. The knee was then flexed up and 2 femoral pins were placed inside the incision and 2 tibial pins were placed outside the incision in the medial tibia bicortically. Once this was completed, the 2 checkpoints in the femur and tibia were placed. Knee was then flexed up and the bony landmarks were registered. Once the was completed, the knee taken through range of motion and manually stressed allowing us to plan for an appropriate tibial cut. The robotic arm was brought into the field sterilely and checkpoint and saw were registered. Based on the patient's deformity, the tibial cut was made in [ 2 degrees varus ]. At this time, the tensioner was then placed in the joint and ligament tension was checked at 90 degrees and full extension. Based on the patient's ligamentous tension, appropriate adjustments were made to the operative plan and ligament releases were done. Once we were happy with our operative plan with balanced flexion and extension gaps, our attention was directed to the femur. The robot was brought into the field sterilely and registered. Posterior condylar cuts, anterior chamfer cuts and anterior cuts were appropriately made for a [size 5 ] femur. When these were completed, the saws were switched out in the distal femoral and posterior chamfer cuts were made. Protecting the soft tissue throughout this time. A [ size 6 ] base plate was selected. The knee was flexed to 90 degrees and soft tissues and posterior osteophytes were removed from the joint. 40 cc of the periarticular injection was injected into the posterior medial corner of the joint. The appropriate trials were then placed on the femur and tibia. A trial polyethylene was trialed to ensure proper balancing and stability of the knee. The appropriate tibial internal rotation was then marked with a bovie. Our attention was then directed to the patella. The lug holes were drilled and the patella trial was placed. Patellar tracking was checked and deemed appropria te. Once we were happy, lug holes were drilled for the femur and trial components were removed. The tibia was subluxed and pinned into place and the keel was punched and drilled appropriately. Final components were verified and opened. The wound was copiously irrigated with normal saline. The components were impacted into place with the tibia, femur and finally the patella. The trial poly component was placed and the knee was placed in full extension. The tracking, alignment and balance were verified and a [9 mm CS ] polyethylene component was placed. Once the final components were placed an Irrisept lavage was performed and the wound was copiously irrigated with normal saline solution and the periarticular injection was given. the wound was closed in a layer-rosa fashion using #1 anne ryl interrupted sutures for the arthrotomy, 2-0 interrupted vicryl suture for the subcuticular layer and johnie for final skin closure. A sterile compressive dressing was then placed. The patient was then awakened from anesthesia, transferred to the [facility] and transferred to the PACU for recovery. My physician administrative services assistant was a vital part of this case. He was important in appropriate retraction during the case, and protection of soft tissues during bony cuts. His intimate knowledge of the case and my steps aided in safe and expedient completion of the procedure as well as appropriate position of the leg during the case. He was also vital in assisting with closure under my direct supervision. Due to the complexity of this case, robotic arm was used to assist in the surgery to improve accuracy and clinical outcomes. Post-op Plan: DVT ppx; ASA 81 mg BID, thigh high compression stockings Follow up: in office in 2 weeks for wound check PT: to start POD #0 at hospital, outpatient PT should be arranged. Preoperative antibiotic: Ancef 2 grams IV Jose Sotelo DO Surgeon: Jose Sotelo mechanical developer prover: Edwige Quintero Type of Anesthesia: Spinal Anesthesiologist: Handy Zabala Admbenny VTE Documentation VTE Present on Admission: No VTE Mechan Device Prophylaxis: SCD's and Thigh High HENNA Hose VTE Pharm Prophylaxis ordered?: Yes
[2023-06-12] MEDS: Lactated Ringers 1,000 ML 999 ML IV (14:48)
[2023-06-12] MEDS: Lactated Ringers 1,000 ML 125 ML IV (14:56)
== END 2023-06-12 18:17 | disposition home or self-care (01) ==
LOC: SDC 08:03 → AC 08:05
PROVIDERS: Anesthesiology; PCP Family Medicine; Referring Provider Orthopaedic Surgery; Visit Provider Orthopaedic Surgery
PROC: 0SRC0JZ Replacement of Right Knee Joint with Synthetic Substitute, Open Approach (ICD-10-PCS; CPT 27447; principal; 2023-06-12 10:05)
DX: M17.11 Unilateral primary osteoarthritis, right knee (principal); I10 Essential (primary) hypertension; E78.00 Pure hypercholesterolemia, unspecified; M21.161 Varus deformity, not elsewhere classified, right knee; E66.9 Obesity, unspecified; Z68.32 Body mass index [BMI] 32.0-32.9, adult; Z79.82 Long term (current) use of aspirin; Z79.899 Other long term (current) drug therapy
CPT/HCPCS: 27447; S2900; 01402; 36415; 73560; 82962; 83036; 83735; 85025; 87077; 87081; 88305; 88311; 97162; C1776; J7120; J2405; J3475

== ENCOUNTER → 2024-05-06 | Outpatient (CLI) | payer MEDICARE, SELFPAY ==
[2024-05-06 13:08] LABS: AST(SGOT) 22 U/L (15-37); Alanine Aminotransfer ALT/SGPT 29 U/L (16-61); Anion Gap 8 (5-15); BUN 21 mg/dL (7-18); BUN/Creat Ratio 30.2 RATIO (10-20); Calcium,Total 9.2 mg/dL (8.5-10.1); Chloride 108 mmol/L (98-107); Cholesterol 139 mg/dL (200); EST Glomerular Filtration Rate 118 mL/min (>60); Est Glom Filt Rate - Afr Amer 142 mL/min (>60); Glucose 105 mg/dL (74-106); High Density Lipoprotein 55 mg/dL; PSA,Total - Annual Screen 1.37 ng/mL (0.00-4.00); Potassium 4.1 mmol/L (3.5-5.1); Sodium Level 141 mmol/L (136-145); Triglycerides 226 mg/dL; Very Low Density Lipoprotein 45 mg/dL (5-40)
[2024-05-06 13:13] LABS: Protein, Urine (Random) 37.2 mg/dL (<11.9); Protein:Creat Ratio 332 mg/g CRE (0-200)
== END | disposition home or self-care (01) ==
PROVIDERS: PCP Family Medicine; Referring Provider Family Medicine; Visit Provider Family Medicine
DX: I10 Essential (primary) hypertension (principal); E78.5 Hyperlipidemia, unspecified; R39.11 Hesitancy of micturition; Z12.5 Encounter for screening for malignant neoplasm of prostate
CPT/HCPCS: 36415; 80048; 80061; 82570; 84153; 84156; 84443; 84450; 84460; G0103

== ENCOUNTER → 2025-06-02 | Outpatient (CLI) | payer MEDICARE, SELFPAY ==
[2025-06-02 11:30] LABS: AST(SGOT) 28 U/L (<=37); Alanine Aminotransfer ALT/SGPT 21 U/L (<=46); Albumin, Serum 4.4 g/dL (3.4-4.8); Alkaline Phosphatase 73 U/L (40-129); Anion Gap 13 (5-15); BUN 15 mg/dL (4-19); BUN/Creat Ratio 21.9 RATIO (10-20); Calcium,Total 9.4 mg/dL (7.6-11.0); Carbon Dioxide 23.5 mmol/L (21.0-32.0); Chloride 106 mmol/L (98-108); Cholesterol 141 mg/dL (<=200); Globulin 3.3 g/dL (2.2-4.2); Glucose 111 mg/dL (70-99); Low Density Lipoprotein Calc. 69 mg/dL; Potassium 4.0 mmol/L (3.3-5.1); Triglycerides 146 mg/dL; Very Low Density Lipoprotein 29 mg/dL (5-40); cholesterol:hdl ratio screen 3.05
== END | disposition home or self-care (01) ==
LOC: MFPLAB 09:29
PROVIDERS: PCP Family Medicine; Visit Provider Family Medicine
DX: I10 Essential (primary) hypertension (principal); E78.5 Hyperlipidemia, unspecified
CPT/HCPCS: 36415; 80053; 80061